=== PATIENT | male | born 1960 | race Caucasian/White ===

== ENCOUNTER → 2020-02-07 09:01 | Outpatient (REF) | payer MEDICAID, SELFPAY | LOC: HO.SL 09:01 | PROVIDERS: PCP Family Medicine; Visit Provider Family Medicine | DX: Z13.89 Encounter for screening for other disorder (principal) ==

== ENCOUNTER 2020-03-27 14:01 | Outpatient (REF) | payer MEDICAID, SELFPAY | END 2020-03-27 14:02 | disposition home or self-care (01) | LOC: HO.LAB 14:01 | PROVIDERS: PCP Family Medicine; Visit Provider Internal Medicine | DX: Z20.828 Contact with and (suspected) exposure to other viral communicable diseases (principal) | CPT/HCPCS: C9803; U0003 ==

== ENCOUNTER → 2020-04-14 08:19 | Outpatient (BNVA) | payer MEDICAID, SELFPAY | PROVIDERS: Referring Provider Family Medicine; Visit Provider Internal Medicine | DX: I35.1 Nonrheumatic aortic (valve) insufficiency (principal); R07.2 Precordial pain | CPT/HCPCS: 93005; 99202 ==

== ENCOUNTER → 2020-05-06 08:23 | Outpatient (REF) | payer MEDICAID, SELFPAY ==
--- NOTE | 2020-05-06 08:27 | CA_ITS ---
Acquisition Time: 2020-05-06 10:05:13 Total Exercise Time: 00:06:51 Test Indications: Chest Pain Medications: OMEPRAZOLE ZOFRAN SILDAFIL Protocol: OLENA Max HR: 151 BPM 92% of Pred: 163 BPM Max BP: 140/078 mmHG Max Work Load: 8.2 METS Exercise stress test using Olena protocol, total of 6 min 51 sec. METS 8.10, TAPHR up to 92 %. Pt tolerated well. Denies any anginal sx. EKG without any arrhythmia, no ischemic changes seen during exercise or in recovery. N ormotensive response to exercise. Test reviewed with Dr. George. Referred By: Willie George Overread By: Leonard Vilchis
--- NOTE | 2020-05-06 08:27 | CA_ITS ---
Transthoracic Echocardiogram Patient (Last, First, Middle): Wily Jones, Gender: Male Date of : 1960 Age: 59 Procedure Date: 05/06/2020 Procedure Type: Transthoracic Echocardiogram Location: OP Height: 170.18 cm Weight: 89.36 kg BSA: 2.01 m2 Heart Rate: bpm BP: 114 / 60 mmHg [employer]: DIANA Patterson MD: Willie George MD Upper Inspector: Clem Hewitt MD Symptoms: I35.1 - Nonrheumatic aortic (valve) insufficiency Study Quality: Good ECG Rhythm: Sinus Conclusions: - 1. Normal LV systolic function with grade 1 diastolic dysfunction 2. Mild and probably okem-rl-csfvelxn eccentric aortic regurgitation 3. Normal RV systolic pressure 4. No gross pericardial effusion Findings Left Ventricle Normal left ventricular cavity size. There is normal left ventricular wall thickness. The left ventricular systolic function is normal. The visually estimated ejection fraction is between 55-60%. Spectral Doppler is indicative of an impaired relaxation filling pattern. E/E prime ratio is <8, consistent with normal filling pressures. Evidence suggests grade I (mild) diastolic dysfunction. There is mild septal asymmetric hypertrophy. Atria The left atrium is likely dilated. There is lipomatous hypertrophy of the interatrial septum. There is no evidence of interatrial shunt. The right atrium is normal in size. Aortic Valve There is mild calcification of the aortic valve. There is no aortic valve stenosis. There is mild to moderate aortic valve regurgitation. Mitral Valve Normal mitral valve structure and function. There is no mitral valve regurgitation. There is no mitral valve stenosis. Pulmonic Valve The pulmonic valve is likely normal. There is trace to mild pulmonic valve regurgitation. Tricuspid Valve Normal tricuspid valve structure. There is mild tricuspid valve regurgitation. The right ventricular systolic pressure is normal. The right ventricular systolic pressure is 29 mmHg. Normal right atrial pressure. There is no evidence of pulmonary hypertension. Great Vessels All visible segments of the aorta are normal in size. The pulmonary artery was not well visualized. Venous The inferior vena cava is normal in size and collapses greater than 50% with inspiration. Pericardium/Pleural There is no evidence of pericardial effusion. Prior Study Comparison No significant change compared to prior study dated: 01/08/2019. Measurements 2D Linear Measurements IVSd: 1.02 0.6-0.9/0.6-1.0 cm LVIDd: 5.13 3.9-5.3/4.2-5.9 cm LVIDd Index: 2.55 2.4-3.2/2.2-3.1 cm/m2 LVIDs: 3.21 2.0-3.6 cm LVPWd: 1.03 0.7-1.1 cm Ao Root: 4.10 2.1-3.5 cm LA Diam: 4.20 2.7-3.8/3.0-4.0 cm LAIDs Index: 2.09 1.5-2.3 cm/m2 LV Mass: 244.55 67-162/88-224 g LV Mass Index: 121.66 43-95/49-115 g/m2 LVOT Diam: 2.00 3.0+(-)1.3 cm 2D Systolic Function EF 4C: 52.60 >55% EF 2C: 56.20 >55% Mitral Valve MV Pk E: 0.51 MV PK A: 0.43 MV Decel Time: 245.00 E/A: 1.20 E'Lateral: 10.30 E'Medial: 7.62 E/E' Med: 6.70 E/E' Lat: 5.00 PHT: 72.00 MVA PHT: 3.06 Decel [place]: 2.08 Aortic Valve AoV Pk Ciaran: 1.29 AoV Mn Ciaran: 0.81 AoV VTI: 0.26 AoV Pk Grad: 7.00 Aov Mn Grad: 3.00 NENA Cont.VTI: 2.73 LVOT LVOT Pk Ciaran: 1.05 LVOT Mn Ciaran: 0.70 LVOT VTI: 0.23 LVOT Pk Grad: 4.00 LVOT Mn Grad: 2.00 LVOT Diam: 2.00 LVOT Area: 3.14 Diastolic Function MV Pk E: 0.51 MV Pk A: 0.43 E/A: 1.20 E'Medial: 7.62 E/E' Med: 6.70 E' Laterial: 10.30 E/E' Lat: 5.00 Tricuspid Valve TR Pk Ciaran: 2.54 TR Pk Grad: 26.00 RA Press: 3.00 RVSP: 29.00 Great Vessels Aorta Ao Root-2D: 4.10 2.0-3.7 cm Ao Asc: 3.60 2.1-3.4 cm Ao Arch: 2.80 Updated in Other Vendor System with Status of Final Clem Hewitt MD electronically signed on 05/07/2020 3:15:37 PM with status of Final
== END ==
LOC: HO.CARD 08:23
PROVIDERS: Visit Provider Internal Medicine
DX: R07.2 Precordial pain (principal); I35.1 Nonrheumatic aortic (valve) insufficiency
CPT/HCPCS: 93017; 93306

== ENCOUNTER 2020-05-10 10:43 | Emergency (ER) | payer MEDICAID, SELFPAY ==
[2020-05-10 11:54] VITALS: BP 110/71; PULSE 66; RESP 18; TEMP 36.9; O2SAT 97; BMI 31.0
--- NOTE | 2020-05-10 12:09 | ED.NAVMDI ---
HPI - Nausea/Vomiting/Diarrhea General Chief complaint: Nausea/Vomiting/Diarrhea Stated complaint: migraine, diarrhea Time Seen by Provider: 05/10/20 11:55 Source: patient Mode of arrival: ambulatory Limitations: language barrier History of Present Illness HPI Narrative: 59 y/o male with history of migraines, erectile dysfunction, aortic regurgitation who presents to the ER with acute onset of watery diarrhea that started at 2am today. He reports some mild abdominal discomfort but denies nausea and vomiting. He states he has been going to the bathroom every 30 minutes since 2am. He denied blood in his stool. No lightheadedness, dizziness, chest pain, SOB or fever. He reports a headache that is typical of his migraines. He took his migraine medications as well as Imodium at 6am but the diarrhea persisted. MD elicited complaint: diarrhea Onset (ago): hour(s) (10) Description of vomiting: watery Description of diarrhea: watery Associated nausea: No Associated abdominal pain: No Location of pain: none Severity: moderate Quality: cramping (mild cramping at times ) Exacerbating factors: bowel movement Relieving factors: none Associated symptoms: headaches and loss of appetite Treatment prior to arrival: immodium Related Data Home Medications Medication Instructions Recorded Confirmed [id number]-ddnkjxjrpmatr-mirejdyv 1 cap PO TID PRN 04/14/20 04/14/20 50 mg-300 mg-40 mg capsule omeprazole 20 mg capsule,delayed 20 mg PO DAILY 04/14/20 04/14/20 release ondansetron HCl 4 mg tablet 4 mg PO Q8H 04/14/20 04/14/20 sildenafil (pulm.hypertension) 20 20 mg PO TID 04/14/20 04/14/20 mg tablet Allergies Allergy/AdvReac Type Severity Reaction Status Date / Time No Known Allergies Allergy Unverified 01/10/20 19:38 Review of Systems Review of Systems: Constitutional: No Fever, No Chills ENT/Mouth: No sore throat, No Rhinorrhea, No Swallowing Difficulty Cardiovascular: No Chest Pain, No SOB, No Orthopnea, No Edema Respiratory: No Cough, No Sputum, No Wheezing, No dyspnea Gastrointestinal: No Nausea, No Vomiting, + Diarrhea, No abdominal Pain Genitourinary: No Dysuria, No Urinary Frequency, No Hematuria Musculoskeletal: No joint pain, No Myalgias Skin: No Skin Lesions, No rash Neuro: + Weakness (mild generalized), No Numbness, No Dizziness, + Headache Psych: No Anxiety/Panic, No Depression Heme/Lymph: No Bruising, No Lymphadenopathy Endocrine: No Polyuria, No Polydipsia Gastrointestinal: Gastrointestinal: Denies nausea PMFSH Past Medical History Medical History (Updated 05/10/20 @ 13:08 by DAYA Ch) Non-rheumatic aortic regurgitation Family History Family History (Updated 04/14/20 @ 08:36 by LILO Hernandez) Father No problems noted. Mother No problems noted. Social History Social History (Updated 04/14/20 @ 08:36 by LILO Hernandez) Smoking Status: Never smoker Use of substances other than those prescribed or required for medical reasons: No Advance Directives: No Advance Directives Information Provided: No Physical Exam Vital Signs: Vital Signs: Last Vital Signs Temp 98.5 F 05/10/20 13:22 Pulse 72 05/10/20 13:22 Resp 16 05/10/20 13:22 BP 122/80 05/10/20 13:22 Pulse Ox 99 05/10/20 13:22 Body Mass Index 31.0 Appearance: Alert. Oriented X3. No acute distress. Eyes: normal inspection ENT: Pharynx normal. Neck: Normal inspection. Neck supple. CVS: Normal heart rate and rhythm. Pulses normal. Respiratory: No respiratory distress. Breath sounds normal. Abdomen: Soft and nontender. +hyperactive bowel sounds Skin: Skin warm and dry. Normal skin color. Normal skin turgor. No rashes. Extremities: No lower extremity edema. Neuro: Oriented X 3. Non-focal, steady gait Course Course Course Narrative: 59 y/o male presenting with 10 hours of watery diarrhea and headache. Suspect viral etiology. No abdominal pain, no bleeding. Will check basic labs, redose Imodium and give trial of Pepto. Will give IVF and test for COVID-19 as well. He appears non-toxic and is hemodynamically stable and afebrile on arrival. Reevaluation(s) Reevaluation #1: 1 episode of diarrhea here. Symptoms overall improving. Lab workup is unremarkable. Lytes are stable. Resp panel negative. Stable for d/c. Patient has been counseled. MDM - Nausea/Vomiting/Diarrhea Differential Diagnosis Differential diagnosis: Likely food poisoning, gastroenteritis and dehydration Lab Data Result diagrams: 05/10/20 12:41 05/10/20 12:41 Labs: Lab Results 05/10/20 05/10/20 05/10/20 Range/Units 12:40 12:40 12:41 WBC 5.6 (4.8-10.8) X10*3/uL RBC 5.15 (4.60-5.80) X10*6/uL Hgb 16.0 (14.0-18.0) g/dl Hct 48.0 (42-52) % MCV 93.2 (80-98) fL MCH 31.1 (27.0-33.0) pg MCHC 33.3 (31.0-36.0) g/dl RDW 13.9 (11.0-16.0) % Plt Count 191 (160-400) X10*3/uL MPV 11.0 (9.4-12.4) fL Immature Gran % (Auto) 0.2 (0.0-0.4) % Neut % (Auto) 72.6 (45-73) % Lymph % (Auto) 16.3 L (20-40) % [place] % (Auto) 9.1 (2-11) % Eos % (Auto) 1.6 (0-4) % Baso % (Auto) 0.2 (0-2) % Lymph # (Auto) 0.9 L (1.2-4.9) X10*3/uL [place] # (Auto) 0.5 (0.1-1.2) X10*3/uL Eos # (Auto) 0.1 (0.0-0.4) X10*3/uL Baso # (Auto) 0.0 (0.0-0.2) X10*3/uL Abs Immat Gran (auto) 0.01 (0.00-0.03) X10*3/uL Absolute Neuts (auto) 4.1 (2.0-8.3) X10*3/uL Absolute Nucleated RBC 0.000 (0.0-0.012) X10*3/uL Nucleated RBC % (auto) 0.0 (0.0-0.2) /100WBC Sodium (135-145) mmol/L Potassium (3.3-5.1) mmol/l Chloride (96-108) mmol/L Carbon Dioxide (22-29) mmol/L Anion Gap (12-20) BUN (9-16) mg/dL Creatinine (0.5-1.4) mg/dL Estim Creat Clear Calc Estimated GFR Random Glucose (60-115) mg/dL Calcium (8.4-10.2) mg/dL Magnesium (1.6-2.6) mg/dL Total Bilirubin (0.0-1.0) mg/dL Direct Bilirubin (0.0-0.5) mg/dL AST (5-37) U/L ALT (0-40) U/L Alkaline Phosphatase (39-117) U/L Total Protein (6.5-8.0) g/dL Albumin (3.5-5.0) g/dL Urine Color YELLOW Urine Appearance CLEAR Urine pH 5.5 (5.0-8.0) Ur Specific Wilsey >= 1.030 H (1.005-1.025) Urine Protein NEG (NEG-TRACE) MG/DL Urine Glucose (UA) NEG (NEG) MG/DL Urine Ketones NEG (NEG) MG/DL Urine Blood NEG (NEG) Urine Nitrite NEG (NEG) Ur Leukocyte Esterase NEG (NEG) Coronavirus (PCR) NEGATIVE (Negative) Influenza Type A (PCR) NEGATIVE (Negative) Influenza Type B (PCR) NEGATIVE (Negative) RSV RNA Qual (PCR) NEGATIVE (Negative) 05/10/20 Range/Units 12:41 WBC (4.8-10.8) X10*3/uL RBC (4.60-5.80) X10*6/uL Hgb (14.0-18.0) g/dl Hct (42-52) % MCV (80-98) fL MCH (27.0-33.0) pg MCHC (31.0-36.0) g/dl RDW (11.0-16.0) % Plt Count (160-400) X10*3/uL MPV (9.4-12.4) fL Immature Gran % (Auto) (0.0-0.4) % Neut % (Auto) (45-73) % Lymph % (Auto) (20-40) % [place] % (Auto) (2-11) % Eos % (Auto) (0-4) % Baso % (Auto) (0-2) % Lymph # (Auto) (1.2-4.9) X10*3/uL [place] # (Auto) (0.1-1.2) X10*3/uL Eos # (Auto) (0.0-0.4) X10*3/uL Baso # (Auto) (0.0-0.2) X10*3/uL Abs Immat Gran (auto) (0.00-0.03) X10*3/uL Absolute Neuts (auto) (2.0-8.3) X10*3/uL Absolute Nucleated RBC (0.0-0.012) X10*3/uL Nucleated RBC % (auto) (0.0-0.2) /100WBC Sodium 142 (135-145) mmol/L Potassium 4.0 (3.3-5.1) mmol/l Chloride 110 H (96-108) mmol/L Carbon Dioxide 23 (22-29) mmol/L Anion Gap 13 (12-20) BUN 18 H (9-16) mg/dL Creatinine 1.37 (0.5-1.4) mg/dL Estim Creat Clear Calc 63.6 Estimated GFR 54 Random Glucose 103 (60-115) mg/dL Calcium 8.8 (8.4-10.2) mg/dL Magnesium 2.0 (1.6-2.6) mg/dL Total Bilirubin 0.7 (0.0-1.0) mg/dL Direct Bilirubin 0.3 (0.0-0.5) mg/dL AST 23 (5-37) U/L ALT 40 (0-40) U/L Alkaline Phosphatase 103 (39-117) U/L Total Protein 7.4 (6.5-8.0) g/dL Albumin 4.6 (3.5-5.0) g/dL Urine Color Urine Appearance Urine pH (5.0-8.0) Ur Specific Wilsey (1.005-1.025) Urine Protein (NEG-TRACE) MG/DL Urine Glucose (UA) (NEG) MG/DL Urine Ketones (NEG) MG/DL Urine Blood (NEG) Urine Nitrite (NEG) Ur Leukocyte Esterase (NEG) Coronavirus (PCR) (Negative) Influenza Type A (PCR) (Negative) Influenza Type B (PCR) (Negative) RSV RNA Qual (PCR) (Negative) Critical Care Time Critical Care Time Critical Care Time: No Discharge Plan Discharge Clinical Impression: Gastroenteritis Patient Disposition: Home, Self-Care Instructions: Acute Diarrhea (ED) Additional Instructions: Your lab work today was unremarkable. You were negative for COVID-19, influenza and RSV. Continue to take Imodium as needed - no not exceed 16 mg in a 24 hour period. Take Pepto Bismol as needed. Stay hydrated, drink plenty of fluids. Stick to a bland diet while you aren't feeling we.. Prescriptions: No Action sildenafil (pulm.hypertension) 20 mg tablet 20 mg PO TID RF: 0 omeprazole 20 mg capsule,delayed release(DR/EC) 20 mg PO DAILY RF: 0 undpyfyfbe-olfhblzfuvkdk-ysdc [Fioricet] 50-300-40 mg capsule 1 cap PO TID PRNRF: 0 ondansetron HCl [Zofran] 4 mg tablet 4 mg PO Q8H RF: 0
[2020-05-10 12:46] LABS: MANUAL DIFF FLAG NO
[2020-05-10 12:47] LABS: Basophils Percent Auto 0.2 % (0-2); Eosinophils Absolute Auto 0.1 X10*3/uL (0.0-0.4); Eosinophils Percent Auto 1.6 % (0-4); Imm Gran Abs Auto 0.01 X10*3/uL (0.00-0.03); Imm Gran Pct Auto 0.2 % (0.0-0.4); Lymphocytes Absolute Auto 0.9 X10*3/uL (1.2-4.9); Lymphocytes Percent Auto 16.3 % (20-40); Mean Corpuscular HGB Conc 33.3 g/dl (31.0-36.0); Mean Corpuscular Hemoglobin 31.1 pg (27.0-33.0); Mean Corpuscular Volume 93.2 fL (80-98); Monocytes Absolute Auto 0.5 X10*3/uL (0.1-1.2); Monocytes Percent Auto 9.1 % (2-11); Neutrophils Absolute Auto 4.1 X10*3/uL (2.0-8.3); Neutrophils Percent Auto 72.6 % (45-73); Platelet Count 191 X10*3/uL (160-400); Red Blood Count 5.15 X10*6/uL (4.60-5.80); Red Cell Distribution Width 13.9 % (11.0-16.0); White Blood Count 5.6 X10*3/uL (4.8-10.8)
[2020-05-10 12:53] LABS: Glucose Urine UA NEG (NEG); Leukocyte Esterase Urine NEG (NEG); Nitrite Urine NEG (NEG); PH 5.5 (5.0-8.0); Specific Gravity - Urine >= 1.030 (1.005-1.025); Urine Blood NEG (NEG); Urine Ketones NEG (NEG); Urine Protein NEG (NEG-TRACE)
[2020-05-10 12:56] LABS: Appearance Urine CLEAR; Color Urine YELLOW
[2020-05-10 13:16] LABS: Alanine Aminotransferase 40 U/L (0-40); Albumin Level 4.6 g/dL (3.5-5.0); Alkaline Phosphatase 103 U/L (39-117); Anion Gap 13 (12-20); Aspartate Amino Transferase 23 U/L (5-37); Bilirubin Direct 0.3 mg/dL (0.0-0.5); Bilirubin Total 0.7 mg/dL (0.0-1.0); Blood Urea Nitrogen 18 mg/dL (9-16); Calcium 8.8 mg/dL (8.4-10.2); Carbon Dioxide 23 mmol/L (22-29); Chloride 110 mmol/L (96-108); Creatinine Clr Calc Pharmacy 63.6; Estimated Glomerular Filt Rate 54; Glucose Random 103 mg/dL (60-115); Sodium 142 mmol/L (135-145); Total Protein 7.4 g/dL (6.5-8.0)
[2020-05-10 13:22] VITALS: BP 122/80; PULSE 72; RESP 16; TEMP 36.9; O2SAT 99
[2020-05-10 13:47] LABS: Influenza A PCR NEGATIVE (Negative); Influenza B PCR NEGATIVE (Negative); Resp Syncy Virus RNA Qual PCR NEGATIVE (Negative); SARS COV2 PCR INHOUSE NEGATIVE (Negative)
[2020-05-10] MEDS: Bismuth Subsalicylate 262 MG TABLET 524 MG PO (14:02)
[2020-05-10] MEDS: Loperamide HCl 2 MG CAPSULE 4 MG PO (14:02)
[2020-05-10] MEDS: 0.9 % Sodium Chloride 1,000 ML 999 ML IVCONT (14:03)
== END 2020-05-10 14:29 | disposition home or self-care (01) ==
PROVIDERS: Physician Assistant; Emergency Provider Emergency Medicine Emergency Medical Services; PCP Family Medicine
DX: K52.9 Noninfective gastroenteritis and colitis, unspecified (principal); G43.909 Migraine, unspecified, not intractable, without status migrainosus; Z20.822 Contact with and (suspected) exposure to COVID-19; Z79.899 Other long term (current) drug therapy
CPT/HCPCS: 0241U; 36415; 80048; 80076; 81003; 83735; 85025; 96360; 99284

== ENCOUNTER → 2020-05-19 08:06 | Outpatient (BNVA) | payer MEDICAID, SELFPAY | PROVIDERS: PCP Family Medicine; Visit Provider Internal Medicine | DX: I35.1 Nonrheumatic aortic (valve) insufficiency (principal); R07.2 Precordial pain | CPT/HCPCS: 99212 ==

== ENCOUNTER → 2021-05-15 09:30 | Outpatient (REF) | payer MEDICAID, SELFPAY ==
--- NOTE | 2021-05-15 09:33 | CA_ITS ---
Transthoracic Echocardiogram Patient (Last, First, Middle): Wily Jones, Gender: Male Date of : 1960 Age: 60 Procedure Date: 05/15/2021 Procedure Type: Transthoracic Echocardiogram Location: OP Height: 167.64 cm Weight: 90.27 kg BSA: 2.00 m2 Heart Rate: bpm BP: 128 / 70 mmHg Director Auto: Referring MD: Willie George MD Symptoms: I35.1 - Nonrheumatic aortic (valve) insufficiency Study Quality: Fair ECG Rhythm: Sinus Conclusions: - Normal left ventricular size and systolic function. - Normal right ventricular cavity size and systolic function. - There is mild to moderate aortic valve regurgitation. Findings Left Ventricle Normal left ventricular size and systolic function. There is mildly increased left ventricular wall thickness. The visually estimated ejection fraction is between 60-65%. Diastolic function is normal for age. Right Ventricle Normal right ventricular cavity size and systolic function. Atria The left atrium is mildly dilated. Aortic Valve There is a normal trileaflet aortic valve. There is no evidence of thickening of the aortic valve. There is no aortic valve stenosis. There is mild to moderate aortic valve regurgitation. Eccentric jet of the AI, anteriorly directed. Mitral Valve Normal mitral valve structure and function. There is trace mitral valve regurgitation. There is no mitral valve stenosis. Pulmonic Valve The pulmonic valve is likely normal. Tricuspid Valve Normal tricuspid valve structure and function. There is trace tricuspid valve regurgitation. Tricuspid regurgitation envelope is inadequate for calculation of right ventricular systolic pressure. Normal right atrial pressure. Great Vessels There is mild dilatation of the ascending aorta. Venous The inferior vena cava is normal in size and collapses greater than 50% with inspiration. Pericardium/Pleural There is no evidence of pericardial effusion. Prior Study Comparison No significant change compared to prior study. Measurements 2D Linear Measurements IVSd: 1.12 0.6-0.9/0.6-1.0 cm LVIDd: 4.92 3.9-5.3/4.2-5.9 cm LVIDd Index: 2.46 2.4-3.2/2.2-3.1 cm/m2 LVIDs: 2.82 2.0-3.6 cm LVPWd: 1.14 0.7-1.1 cm Ao Root: 3.80 2.1-3.5 cm LA Diam: 4.10 2.7-3.8/3.0-4.0 cm LAIDs Index: 2.05 1.5-2.3 cm/m2 LV Mass: 261.09 67-162/88-224 g LV Mass Index: 130.55 43-95/49-115 g/m2 LVOT Diam: 2.30 3.0+(-)1.3 cm 2D Systolic Function EF 4C: 60.80 >55% EF 2C: 53.20 >55% EF BiP: 59.20 >55% Mitral Valve MV Pk E: 0.64 MV PK A: 0.50 MV Decel Time: 213.00 E/A: 1.30 E'Lateral: 11.00 E'Medial: 7.51 E/E' Med: 8.50 E/E' Lat: 5.80 PHT: 63.00 MVA PHT: 3.49 Decel Winn: 2.99 Aortic Valve AoV Pk Ciaran: 1.43 AoV Mn Ciaran: 0.95 AoV VTI: 0.29 AoV Pk Grad: 8.00 Aov Mn Grad: 4.00 NENA Cont.VTI: 3.14 LVOT LVOT Pk Ciaran: 1.06 LVOT Mn Ciaran: 0.63 LVOT VTI: 0.22 LVOT Pk Grad: 4.00 LVOT Mn Grad: 2.00 LVOT Diam: 2.30 LVOT Area: 4.15 Diastolic Function MV Pk E: 0.64 MV Pk A: 0.50 E/A: 1.30 E'Medial: 7.51 E/E' Med: 8.50 E' Laterial: 11.00 E/E' Lat: 5.80 Right Ventricle TAPSE (mm): 28.00 TVS' Ciaran: 14.00 Tricuspid Valve TR Pk Ciaran: 1.93 TR Pk Grad: 15.00 Great Vessels Aorta Ao Root-2D: 3.80 2.0-3.7 cm Ao Asc: 3.50 2.1-3.4 cm Pulmonary Valve PV Pk Ciaran: 1.00 Peak PV Grad: 4.00 Updated in Other Vendor System with Status of Final Abdulaziz Finch MD electronically signed on 05/18/2021 12:26:24 PM with status of Final
== END ==
LOC: HO.CARD 09:30
PROVIDERS: Visit Provider Internal Medicine
DX: I35.1 Nonrheumatic aortic (valve) insufficiency (principal)
CPT/HCPCS: 93306

== ENCOUNTER → 2021-07-16 08:28 | Outpatient (BNVA) | payer MEDICAID, SELFPAY | PROVIDERS: PCP Nurse Practitioner; Referring Provider Nurse Practitioner; Visit Provider Internal Medicine | DX: I35.1 Nonrheumatic aortic (valve) insufficiency (principal); R07.2 Precordial pain | CPT/HCPCS: 93005; 99212 ==

== ENCOUNTER → 2022-06-30 07:56 | Outpatient (REF) | payer MEDICAID, SELFPAY ==
--- NOTE | 2022-06-30 07:58 | CA_ITS ---
Transthoracic Echocardiogram Patient (Last, First, Middle): Wily Jones, Gender: Male Date of : 1960 Age: 61 Procedure Date: 06/30/2022 Procedure Type: Transthoracic Echocardiogram Location: OP Height: 167.64 cm Weight: 81.65 kg BSA: 1.91 m2 Heart Rate: 53 bpm BP: 120 / 70 mmHg Vertical Borer: MARILU Referring MD: Willie George MD Symptoms: I35.1 - Nonrheumatic aortic (valve) insufficiency Study Quality: Fair ECG Rhythm: Sinus Conclusions: - The left ventricular systolic function is normal. The calculated ejection fraction is 55% by biplane method. - There is moderate septal and moderate basal asymmetric hypertrophy. - There is mild to moderate aortic valve regurgitation. Findings Left Ventricle Normal left ventricular cavity size. The left ventricular systolic function is normal. The calculated ejection fraction is 55% by biplane method. There is no evidence of regional wall motion abnormalities. Diastolic function is normal for age. There is moderate septal and moderate basal asymmetric hypertrophy. Right Ventricle Normal right ventricular cavity size and systolic function. Atria Both atria are normal in size. Aortic Valve There is a normal trileaflet aortic valve. There is mild calcification of the aortic valve. There is no aortic valve stenosis. There is mild to moderate aortic valve regurgitation. Mitral Valve The mitral valve appears normal. There is no mitral valve regurgitation. There is no mitral valve stenosis. Pulmonic Valve There is trace pulmonic valve regurgitation. Tricuspid Valve Normal tricuspid valve structure. There is mild tricuspid valve regurgitation. There is no evidence of pulmonary hypertension. Great Vessels The asc aorta is normal in size. There is mild dilatation of the sinuses of Valsalva measuring 4.00 cm. Venous The inferior vena cava is normal in size and collapses greater than 50% with inspiration. Pericardium/Pleural There is no evidence of pericardial effusion. Prior Study Comparison No significant change compared to prior study dated: 05/15/2021. Measurements 2D Linear Measurements IVSd: 1.33 0.6-0.9/0.6-1.0 cm LVIDd: 4.83 3.9-5.3/4.2-5.9 cm LVIDd Index: 2.53 2.4-3.2/2.2-3.1 cm/m2 LVIDs: 2.24 2.0-3.6 cm LVPWd: 1.05 0.7-1.1 cm LA Diam: 3.80 2.7-3.8/3.0-4.0 cm LAIDs Index: 1.99 1.5-2.3 cm/m2 LV Mass: 272.61 67-162/88-224 g LV Mass Index: 142.73 43-95/49-115 g/m2 LVOT Diam: 2.10 3.0+(-)1.3 cm 2D Systolic Function EF 4C: 56.50 >55% EF 2C: 52.10 >55% EF BiP: 55.30 >55% Mitral Valve MV Pk E: 0.55 MV PK A: 0.42 MV Decel Time: 183.00 E/A: 1.30 E'Lateral: 11.00 E'Medial: 7.94 E/E' Med: 7.00 E/E' Lat: 5.00 PHT: 54.00 MVA PHT: 4.07 Decel [place]: 3.03 Aortic Valve AoV Pk Ciaran: 1.18 AoV Mn Ciaran: 0.85 AoV VTI: 0.28 AoV Pk Grad: 6.00 Aov Mn Grad: 3.00 NENA Cont.VTI: 3.19 AI Alias Ciaran: 0.39 LVOT LVOT Pk Ciaran: 1.04 LVOT Mn Ciaran: 0.70 LVOT VTI: 0.26 LVOT Pk Grad: 4.00 LVOT Mn Grad: 2.00 LVOT Diam: 2.10 LVOT Area: 3.46 Diastolic Function MV Pk E: 0.55 MV Pk A: 0.42 E/A: 1.30 E'Medial: 7.94 E/E' Med: 7.00 E' Laterial: 11.00 E/E' Lat: 5.00 Right Ventricle TAPSE (mm): 25.30 TVS' Ciaran: 15.40 Tricuspid Valve TR Pk Ciaran: 2.15 TR Pk Grad: 18.00 RA Press: 3.00 RVSP: 21.00 Great Vessels Aorta Sinus of Valsalva: 4.00 2.0-3.5 cm Ao Asc: 3.60 2.1-3.4 cm Pulmonary Valve PV Pk Ciaran: 0.99 Peak PV Grad: 4.00 Updated in Other Vendor System with Status of Final Willie George MD electronically signed on 07/02/2022 12:14:57 PM with status of Final
== END ==
LOC: HO.CARD 07:56
PROVIDERS: Visit Provider Internal Medicine
DX: I35.1 Nonrheumatic aortic (valve) insufficiency (principal)
CPT/HCPCS: 93306

== ENCOUNTER → 2022-08-19 08:47 | Outpatient (BNVA) | payer MEDICAID, SELFPAY | PROVIDERS: Referring Provider Nurse Practitioner; Visit Provider Internal Medicine | DX: I35.1 Nonrheumatic aortic (valve) insufficiency (principal); R07.2 Precordial pain | CPT/HCPCS: 93005; 99212 ==

== ENCOUNTER 2022-11-16 10:26 | Outpatient (REF) | payer MEDICAID, SELFPAY ==
[2022-11-16 12:10] LABS: Estimated Average Glucose 103 mg/dL; Hemoglobin A1c % 5.2 %
[2022-11-16 12:46] LABS: Microalbum/Creatinine Ratio Ur 2.7 ug/mg cr
[2022-11-16 13:20] LABS: Anion Gap 10 (12-20); Blood Urea Nitrogen 18 mg/dL (9-16); Calcium 9.2 mg/dL (8.4-10.2); Carbon Dioxide 27 mmol/L (22-29); Chloride 108 mmol/L (96-108); Cholesterol 148 mg/dL; Estimated Glomerular Filt Rate 53; Glucose Random 99 mg/dL (60-115); HDL Cholesterol 32 mg/dL; LDL Cholesterol Calculated 92 mg/dl; Potassium 4.1 mmol/L (3.3-5.1); Sodium 141 mmol/L (135-145); Triglycerides 124 mg/dL
== END 2022-11-16 10:27 | disposition home or self-care (01) ==
LOC: HO.HHCL 10:26
PROVIDERS: Visit Provider Nurse Practitioner Primary Care
DX: R73.03 Prediabetes (principal)
CPT/HCPCS: 36415; 80048; 80061; 82043; 83036

== ENCOUNTER 2022-11-29 13:45 | Outpatient (AMB) | payer MEDICAID, SELFPAY ==
[2022-11-29 13:55] VITALS: BP 130/71; PULSE 63; BMI 30.1
--- NOTE | 2022-11-29 13:55 | MHC.OFFVIS ---
Intake Vital Signs 11/29/22 13:55 Height 5 ft 7 in Weight 192 lb BMI 30.1 BP 130/71 Blood Pressure Location Rt brachial Position Sitting Pulse 63 Intake Visit Reasons: right inguinal hernia Intake Note: This patient presents for an assessment for right inguinal hernia. Patient c/o; Onset 2 months, reports right inguinal pain, bulge, reports urinary problems. Sales Counselor Required: Yes Sales Counselor Language: Abrasive Band Winder Name: Syed Information Interpreted: non-clinical & clinical Accompanied by: Self / Same As Patient Allergies No Known Allergies Allergy (Verified 11/29/22 14:03) Medication List - Last Reconciled 11/29/22 by Roosevelt Olson MD etumtgwvof-zjehmijnvbwhx-izeo 50-300-40 mg (Fioricet) 1 cap PO TID PRN cetirizine 10 mg PO QAM melatonin 10 mg PO BEDTIME ondansetron HCl (Zofran) 4 mg PO Q8H sildenafil (pulm.hypertension) 20 mg PO TID HPI right inguinal hernia HPI Details 62-year-old male referred for right inguinal hernia. He notices this small mass on his right groin with exertion. He says that he has started noticing this about 3 months ago. He also describes discomfort with lifting. 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 He denies any GI complaints. He also says that he was told he has a benign heart murmur. [facility] Medical History Inguinal hernia of right side without obstruction or gangrene Non-rheumatic aortic regurgitation Family History Father No problems noted. Mother No problems noted. Social History Patient Tobacco Use Status: Never used Tobacco Review of Systems Const Denies chills and Denies fever(s) Card Denies chest pain, Denies dyspnea and Denies dyspnea on exertion Resp Denies cough, Denies dyspnea and Denies dyspnea on exertion GI Denies hematochezia and Denies change in bowel habits Denies hematuria and Denies difficulty urinating Musc Denies back pain and Denies limited range of motion Neuro Denies focal weakness and Denies convulsions Psych Denies depression and Denies mood swings Physical Exam Vital Signs: Last Vital Signs Pulse 63 11/29/22 13:55 BP 130/71 11/29/22 13:55 BMI result Body Mass Index 30.1 Const General: comfortable and no acute distress Orientation/consciousness: patient oriented x3 Neck Neck: Yes no lymphadenopathy Resp Auscultation: clear to auscultation bilaterally Cardio Rhythm: regular rhythm GI Other: Right inguinal hernia, obvious with Valsalva, reducible Palpation (GI): Soft to palpation, nontender and no guarding Neuro General: patient oriented x3 Assessment & Plan Assessment & Plan (1) Inguinal hernia of right side without obstruction or gangrene: Code(s): K40.90 - Unilateral inguinal hernia, without obstruction or gangrene, not specified as recurrent Plan: I explained to him the technique of repair with mesh placement. I reviewed with him the risks including but not limited to bleeding, infections, injury to other organs including bowel, vas deferens and the scrotum, recurrence of the hernia, postop pain, hematoma, as well as the benefits and alternatives. He wants to proceed because of discomfort. I also explained to him what to expect postoperatively. Coding Level of Care Code New Pt Level 3 (13422) Diagnoses Inguinal hernia of right side without obstruction or gangrene K40.90
== END 2022-11-29 14:18 | disposition home or self-care (01) ==
PROVIDERS: Visit Provider Surgery
DX: K40.90 Unilateral inguinal hernia, without obstruction or gangrene, not specified as recurrent (principal)
CPT/HCPCS: 99203

== ENCOUNTER → 2022-11-29 13:45 | Outpatient (BNVA) | payer MEDICAID, SELFPAY | PROVIDERS: Visit Provider Surgery | DX: K40.90 Unilateral inguinal hernia, without obstruction or gangrene, not specified as recurrent (principal) | CPT/HCPCS: 99202 ==

== ENCOUNTER 2023-01-25 06:06 | Day surgery (SDC) | payer MEDICAID, SELFPAY ==
[2023-01-21 09:36] VITALS: BMI 30.1
--- NOTE | 2023-01-24 13:57 | HO.ANESPROP2 ---
Documented by User: Sole Recinos NP 01/24/23 14:02 HPI - Anesthesia Eval Consult details Narrative: 62yo M for Right Hernia Repair Inguinal w/mesh PMFSH Active Problems Active Problems: All Active Problems (Updated 11/29/22 @ 14:18 by Roosevelt Olson MD) Inguinal hernia of right side without obstruction or gangrene (Acute) Precordial chest pain (Acute) Non-rheumatic aortic regurgitation (Acute) Past Medical History Medical History Insomnia Migraines Inguinal hernia of right side without obstruction or gangrene Non-rheumatic aortic regurgitation Family History Family History Father No problems noted. Mother No problems noted. Surgical History Surgical History History of ear surgery H/O colonoscopy History of carpal tunnel surgery of right wrist Social History Social History Patient Tobacco Use Status: Never used Tobacco Use of substances other than those prescribed or required for medical reasons: No Are you DNR?: No Advance Directives: No Advance Directives Information Provided: Yes Meds Allergies Allergy/AdvReac Type Severity Reaction Status Date / Time No Known Allergies Allergy Verified 01/25/23 06:17 Home Medications Medication Instructions Recorded Confirmed Last Taken Type whsezxjtuw-zooioqzqfdbwo-dftgplnp 1 cap PO TID PRN Migraine Headache 04/14/20 01/25/23 Unknown History 50 mg-300 mg-40 mg capsule (Fioricet) melatonin 5 mg tablet 10 mg PO BEDTIME 08/19/22 01/25/23 Unknown History cetirizine 10 mg tablet 10 mg PO QAM 11/29/22 01/25/23 Unknown History Exam Exam Date and Time: January 24, 2023 1357 Height,Weight and Vital Signs: Height 5 ft 7 in Weight 87.09 kg Pertinent Lab Results Pertinent Lab Results: Laboratory Tests 05/10/20 11/16/22 12:41 10:29 WBC 5.6 Hgb 16.0 Hct 48.0 Plt Count 191 Sodium 141 Potassium 4.1 Chloride 108 Carbon Dioxide 27 BUN 18 H Creatinine 1.38 Narrative Narrative: EKG 07/2022 sinus bradycardia, 55/Min; no significant ST-T changes and otherwise unremarkable. Normal IA and corrected QT ECHO 06/2022 Conclusions: - The left ventricular systolic function is normal. The calculated ejection fraction is 55% by biplane method. - There is moderate septal and moderate basal asymmetric hypertrophy. - There is mild to moderate aortic valve regurgitation. (No specific management per 07/2022 cardiology note) Assessment and Plan Assessment Anesthesia Assessment: Chart Reviewed Documented by User: Sheba Nichols MD 01/25/23 08:04 PMFSH Past Medical History Medical History Insomnia Migraines Inguinal hernia of right side without obstruction or gangrene Non-rheumatic aortic regurgitation Family History Family History Father No problems noted. Mother No problems noted. Family history of problems with anesthesia: No Surgical History Surgical History History of ear surgery H/O colonoscopy History of carpal tunnel surgery of right wrist History of Problems with Anesthesia: No Social History Social History Patient Tobacco Use Status: Never used Tobacco Use of substances other than those prescribed or required for medical reasons: No Are you DNR?: No Advance Directives: No Advance Directives Information Provided: Yes Meds Allergies Allergy/AdvReac Type Severity Reaction Status Date / Time No Known Allergies Allergy Verified 01/25/23 06:17 Home Medications Medication Instructions Recorded Confirmed Last Taken Type jehyfezwec-xzmyjyuogslbz-mzbmhftz 1 cap PO TID PRN Migraine Headache 04/14/20 01/25/23 Unknown History 50 mg-300 mg-40 mg capsule (Fioricet) melatonin 5 mg tablet 10 mg PO BEDTIME 08/19/22 01/25/23 Unknown History cetirizine 10 mg tablet 10 mg PO QAM 11/29/22 01/25/23 Unknown History Exam Airway Mallampati Class: III TM Dist: >3cm Neck ROM: Full Heart: rrr Lungs: cta Assessment and Plan Assessment Anesthesia Assessment: Anesthesia Plan Discussed Final Anesthetic Review Family History of Problems with Anesthesia: No History of Problems with Anesthesia: No NPO: Yes ASA Class: II Final Preanesthetic Review: No Changes in Pt Med Stat, Meds/Allgs Chart Reviewed, Consent Obtained/Reviewed and Anes Risks/Benef Reviewed Patient Risk: Low Procedure Risk: Low Anesthetic Plan Anesthetic Plan: GA Disposition: Standard PACU
[2023-01-25] VITALS (18 sets, daily range): BP systolic 110–166; BP diastolic 56–97; PULSE 48–64; RESP 14–20; TEMP 36–36.4; O2SAT 94–100
[2023-01-25] MEDS: Lactated Ringers 1,000 ML 100 ML IVCONT (06:42)
[2023-01-25] MEDS: fentaNYL citrate/PF 100 MCG/2 ML VIAL 25 MCG IVPUSH ×4 (08:13→09:18)
--- NOTE | 2023-01-25 08:34 | P.OP_ITS ---
Operative Note Operative Note Date of Service: 01/25/23 Narrative: Preop diagnosis: Left inguinal hernia Postop diagnosis: Left inguinal hernia, direct Procedure: Repair left inguinal hernia with mesh Surgeon: Roosevelt Olson MD pharmacist assistant: DAYA Zimmer The patient is a 62-year-old male with note of a reducible mass on the left groin consistent with the left inguinal hernia. He understood the technique of repair with mesh. He was aware of the risks, benefits, and alternatives. He was brought to the operating room. He was placed supine under general anesthesia early with LMA and then converted to an endotracheal tube. The left groin had been prepped and draped in the usual sterile fashion. A surgical time-out was done. The patient received cefazolin 2 g IV preoperatively I infiltrated my planned line of incision with lidocaine 1%. I made a short incision using blade 15 along an imaginary line from the anterior superior iliac spine to the pubic ramus. this was carried down with electrocautery through the full-thickness of the skin and subcutaneous fat until I was able to expose the external oblique aponeurosis. I was able to visualize the external ring. I bluntly dissected this to define this. I made an incision on the aponeurosis overlying the canal using blade 15. This was extended inferiorly medially to connect with the external ring using an open tip pair of scissors. The inguinal canal was therefore entered. I applied graspers on the edges of the divided aponeurosis. I bluntly dissected the underside with the finger to create a pocket for the mesh. I proceeded to pass a [place] drain around the spermatic cord to use this for retraction. I then identified the vas deferens and the accompanying vessels and these were protected during the dissection. I examined the entire cord. There was no the sac along the cord but there was note of fat containing hernia on the floor of the canal consistent with a direct hernia. I bluntly dissected this off of the rest of the cord contents. I defined this hernia defect. I reinforced the defect with a medium-sized plug. The plug was secured to the shelving edge of the inguinal ligament laterally, the internal oblique superiorly as well as medially. I reinforced the rest of the foot of the canal with a keyhole mesh. The tails of the mesh were passed around the cord at the level of the internal ring and were secured together with the Prolene 2-0 stitch. I flattened the mesh. I secured this to the pubic ramus inferomedially, the inguinal ligament laterally, the internal oblique superiorly as well as medially. I irrigated and observed from a stasis. Once hemostasis was confirmed, I closed the external oblique aponeurosis with a running 2-0 stitch to re-create the external ring. I then reapposed the subcutaneous layer with S of 3-0 interrupted sutures. Skin closure was achieved with polyps a 4-0 subcuticular running stitch. The area was infiltrated with Marcaine 0.5% for postop analgesia. Dressings were applied and the procedure was completed The patient tolerated the rocedure well. There were no immediate complications. Initial and final counts of sponges and instruments were correct. Estimated blood loss was about 25 cc The patient was extubated without difficulty and transferred to the recovery room with stable vital signs.
--- NOTE | 2023-01-25 08:47 | MHC.SHP ---
Pre-Procedural Eval Section A Date of Service: 01/25/23 The patient is an INPATIENT: No Changes since office visit: No Cold of Flu in the past 2 weeks, No New Medical Problems, No Changes in Medication and No Patient answered all questions The History & Physical has been completed within 30 days and I have reviewed it.: Yes Section B Chief Complaint: Unilateral inguinal hernia, without obstruction or Details of Present Illness: has left inguinal hernia, reducible Relevant Family History (Specify if Yes): No Relevant Social History: None Present Medications: see Short Stay Collaborative assessment Medical History: Significant History ( rheumatic heart disease) History of Previous Operations: No relevant previous surgery Allergies: Allergies Allergy/AdvReac Type Severity Reaction Status Date / Time No Known Allergies Allergy Verified 01/25/23 06:17 Review of Systems Sugical H&P ROS: Negative: Constitution, Cardiovascular, Respiratory, Neurological, Psychiatric, Hem-Onc, Allergic/Immunologic, Gastrointestinal, Genitourinary, Musculoskeletal, Integumentary, Endocrine and Eyes/Ears/Nose/Throat Exam Surgical H&P Exam: Significant Findings: Abdomen ( reducible left inguinal hernia) Plan Diagnosis/Plan: Unchanged I have reviewed the history and physical and performed a pertinent physical examination on my patient. No changes have occurred unless specified. Time Spent With Patient Time: Total time managing care of this patient today ____ minutes.
[2023-01-25] MEDS: oxyCODONE HCl Immed Release 5 MG TABLET PO ×2 (09:06→09:11)
[2023-01-25] MEDS: Acetaminophen 1,000 MG/100 ML PIGGYBACK 400 MG IV (09:18)
[2023-01-25] MEDS: fentaNYL citrate/PF 100 MCG/2 ML VIAL 50 MCG IVPUSH (09:33)
[2023-01-25] MEDS: ondansetron HCL 4 MG/2 ML VIAL IVPUSH (09:51)
[2023-01-25] MEDS: Ondansetron ODT 4 MG TAB.RAPDIS TRANSLINGU (10:44)
== END 2023-01-25 11:09 | disposition home or self-care (01) ==
PROVIDERS: PCP Nurse Practitioner Primary Care; Visit Provider Surgery
PROC: (CPT 49505; principal; 2023-01-25 07:30)
DX: K40.90 Unilateral inguinal hernia, without obstruction or gangrene, not specified as recurrent (principal); R10.31 Right lower quadrant pain; I35.1 Nonrheumatic aortic (valve) insufficiency; R73.03 Prediabetes; G43.909 Migraine, unspecified, not intractable, without status migrainosus; Z79.899 Other long term (current) drug therapy
CPT/HCPCS: 49505; C1781; J0131; J0690; J1100; J1170; J2405; J3010

== ENCOUNTER → 2023-01-25 06:06 | Outpatient (BNV) | payer MEDICAID, SELFPAY | PROVIDERS: PCP Nurse Practitioner Primary Care; Visit Provider Surgery | DX: K40.90 Unilateral inguinal hernia, without obstruction or gangrene, not specified as recurrent (principal) | CPT/HCPCS: 49505 ==

== ENCOUNTER 2023-02-07 14:07 | Outpatient (AMB) | payer MEDICAID, SELFPAY ==
--- NOTE | 2023-02-07 14:27 | MHC.OFFVIS ---
Intake Vital Signs 02/07/23 14:34 Weight 194 lb BP 142/73 H Blood Pressure Location Rt brachial Position Sitting Pulse 61 Intake Visit Reasons: S/P RIH w/mesh Intake Note: This patient presents for a post-op assessment status post right inguinal hernia repair with mesh. Patient c/o; reports no changes or complaints at this time pertaining to surgery. Woodenware Assembler Required: Yes Woodenware Assembler Language: Circuit Design Engineer Name: Syed Information Interpreted: non-clinical & clinical Accompanied by: Other Relationship Allergies No Known Allergies Allergy (Verified 02/07/23 14:34) HPI S/P RIH w/mesh HPI Details He underwent repair of a right inguinal hernia with mesh last 01/25/2023 and is here for postop visit. He says he did have significant pain postoperatively but feels much better now. He denies any other complaints. He says he feels well overall and wants to be able to return to work soon. [facility] Medical History Insomnia Migraines Inguinal hernia of right side without obstruction or gangrene Non-rheumatic aortic regurgitation Surgical History History of right inguinal hernia repair History of ear surgery H/O colonoscopy History of carpal tunnel surgery of right wrist Family History Father No problems noted. Mother No problems noted. Social History Patient Tobacco Use Status: Never used Tobacco Review of Systems Const Denies chills and Denies fever(s) Card Denies chest pain, Denies dyspnea and Denies dyspnea on exertion Resp Denies cough, Denies dyspnea and Denies dyspnea on exertion GI Denies hematochezia and Denies change in bowel habits Denies hematuria and Denies difficulty urinating Musc Denies back pain and Denies limited range of motion Neuro Denies focal weakness and Denies convulsions Psych Denies depression and Denies mood swings Physical Exam Vital Signs: Last Vital Signs Pulse 61 02/07/23 14:34 BP 142/73 H 02/07/23 14:34 Const General: comfortable and no acute distress Resp Effort & Inspection: normal respiratory effort GI Other: Right inguinal hernia repair site is well healed, repair intact, no infection Assessment & Plan Assessment & Plan (1) Inguinal hernia of right side without obstruction or gangrene: Code(s): K40.90 - Unilateral inguinal hernia, without obstruction or gangrene, not specified as recurrent Plan: Status post repair with mesh. He is incision is well healed. I advised him to avoid lifting more on than 20 lb for at least 2 more weeks. He wants to go back to work so I told him that he can go back to work on TuesdayFebruary 14 without any lifting of more than 20 lb until I see him back in the office for for a postop visit in about a month. Coding Level of Care Code Global (91601) Diagnoses Inguinal hernia of right side without obstruction or gangrene K40.90
[2023-02-07 14:34] VITALS: BP 142/73; PULSE 61
== END 2023-02-07 14:47 | disposition home or self-care (01) ==
PROVIDERS: Visit Provider Surgery
DX: K40.90 Unilateral inguinal hernia, without obstruction or gangrene, not specified as recurrent (principal)
CPT/HCPCS: 99024

== ENCOUNTER → 2023-02-07 14:07 | Outpatient (BNVA) | payer MEDICAID, SELFPAY | PROVIDERS: Visit Provider Surgery ==

== ENCOUNTER 2023-03-10 09:06 | Outpatient (AMB) | payer MEDICAID, SELFPAY ==
--- NOTE | 2023-03-10 09:31 | MHC.OFFVIS ---
Intake Intake Visit Reasons: S/P RIH w/mesh Intake Note: This patient presents for a post-op assessment status post right inguinal hernia repair with mesh. Patient c/o; reports occasional discomfort surgical site, reports feeling stabbing sensation surgical site when site. Assembly Inspector Helper Required: Yes Assembly Inspector Helper Language: Medical Apparatus Model Maker Name: Syed Information Interpreted: non-clinical & clinical Accompanied by: Self / Same As Patient Allergies No Known Allergies Allergy (Verified 03/10/23 09:39) HPI S/P RIH w/mesh HPI Details He is here for postop visit after right hernia repair over a month ago. He continues to do well. He does describe some occasional pain on the hernia repair site. He says that 1 of this sutures seemed to come out and drain although this appears dry now. [facility] Medical History Insomnia Migraines Inguinal hernia of right side without obstruction or gangrene Non-rheumatic aortic regurgitation Surgical History History of right inguinal hernia repair History of ear surgery H/O colonoscopy History of carpal tunnel surgery of right wrist Family History Father No problems noted. Mother No problems noted. Social History Patient Tobacco Use Status: Never used Tobacco Review of Systems Const Denies chills and Denies fever(s) Card Denies chest pain, Denies dyspnea and Denies dyspnea on exertion Resp Denies cough, Denies dyspnea and Denies dyspnea on exertion GI Denies hematochezia and Denies change in bowel habits Denies hematuria and Denies difficulty urinating Musc Denies back pain and Denies limited range of motion Neuro Denies focal weakness and Denies convulsions Psych Denies depression and Denies mood swings Physical Exam Const General: comfortable and no acute distress GI Other: Right inguinal hernia repair site is well healed, repair intact, no discharge, no induration, no redness Assessment & Plan Assessment & Plan (1) Inguinal hernia of right side without obstruction or gangrene: Code(s): K40.90 - Unilateral inguinal hernia, without obstruction or gangrene, not specified as recurrent Plan: status post repair with mesh. This repair site appears intact. The incision is well healed. There is no discharge or any induration. I told him that the absorbable sutures are not completely so for about 2-3 months so he may notice some drainage from this due to foreign body reaction. There is no infection at this time and it looks like this is actually well healed I did tell him that if he has concerns down the line, he is welcome to come back to the office to be re-evaluated. He is comfortable with this plan. Coding Level of Care Code Global (32774) Diagnoses Inguinal hernia of right side without obstruction or gangrene K40.90
== END 2023-03-10 09:37 | disposition home or self-care (01) ==
PROVIDERS: Visit Provider Surgery
DX: K40.90 Unilateral inguinal hernia, without obstruction or gangrene, not specified as recurrent (principal)
CPT/HCPCS: 99024

== ENCOUNTER → 2023-03-10 09:06 | Outpatient (BNVA) | payer MEDICAID, SELFPAY | PROVIDERS: Visit Provider Surgery | DX: K40.90 Unilateral inguinal hernia, without obstruction or gangrene, not specified as recurrent (principal) ==

== ENCOUNTER 2023-07-07 10:07 | Outpatient (REF) | payer MEDICAID, SELFPAY ==
[2023-07-07 11:32] LABS: MANUAL DIFF FLAG NO
[2023-07-07 11:47] LABS: Basophils Percent Auto 0.2 % (0-2); Eosinophils Absolute Auto 0.2 X10*3/uL (0.0-0.4); Eosinophils Percent Auto 4.8 % (0-4); Hematocrit 43.3 % (42.0-52.0); Hemoglobin 14.7 g/dl (14.0-18.0); Imm Gran Abs Auto 0.01 X10*3/uL (0.00-0.03); Imm Gran Pct Auto 0.2 % (0.0-0.4); Lymphocytes Absolute Auto 1.2 X10*3/uL (1.2-4.9); Lymphocytes Percent Auto 27.4 % (20-40); Mean Corpuscular HGB Conc 33.9 g/dl (31.0-36.0); Mean Corpuscular Hemoglobin 30.6 pg (27.0-33.0); Mean Corpuscular Volume 90.2 fL (80.0-98.0); Mean Platelet Volume 10.9 fL (9.4-12.4); Monocytes Absolute Auto 0.6 X10*3/uL (0.1-1.2); Monocytes Percent Auto 12.6 % (2-11); Neutrophils Absolute Auto 2.4 x10*3/uL (2.0-8.3); Neutrophils Percent Auto 54.8 % (45-73); Platelet Count 194 X10*3/uL (160-400); Red Cell Distribution Width 13.5 % (11.0-16.0); White Blood Count 4.4 X10*3/uL (4.8-10.8)
[2023-07-07 12:20] LABS: Anion Gap 14 (12-20); Blood Urea Nitrogen 17 mg/dL (9-16); Calcium 9.3 mg/dL (8.4-10.2); Carbon Dioxide 25 mmol/L (22-29); Chloride 106 mmol/L (96-108); Estimated Glomerular Filt Rate 54; Glucose Random 111 mg/dL (60-115); Sodium 141 mmol/L (135-145)
[2023-07-07 12:39] LABS: Folate 8.6 ng/mL (> or = 4.0); Vitamin B12 400 pg/mL (200-900)
[2023-07-07 12:49] LABS: TSH reflex Free T4 1.03 uIU/mL (0.32-4.0)
== END 2023-07-07 10:08 | disposition home or self-care (01) ==
LOC: HO.HHCL 10:07
PROVIDERS: Visit Provider Nurse Practitioner Primary Care
DX: R20.0 Anesthesia of skin (principal)
CPT/HCPCS: 36415; 80048; 82607; 82746; 84443; 85025

== ENCOUNTER 2023-08-18 09:18 | Outpatient (AMB) | payer MEDICAID, SELFPAY ==
[2023-08-18 09:19] VITALS: BP 120/72; PULSE 70; RESP 18; BMI 30.9
--- NOTE | 2023-08-18 09:19 | MHC.OFFVIS ---
Vital Signs 08/18/23 09:19 Height 5 ft 7 in Weight 197 lb 1.492 oz BMI 30.9 BP 120/72 Blood Pressure Location Lt brachial Position Sitting Respiration 18 Pulse 70 Intake Visit Reasons: 1 yr f/up Appeals Analyst Required: Yes Appeals Analyst Name: [id number] Accompanied by: Self / Same As Patient Allergies No Known Allergies Allergy (Verified 03/10/23 09:39) Medication List - Last Reconciled 08/18/23 by Willie George MD utdkocemjx-ceqxfyxrrtnqq-ljjf 50-300-40 mg (Fioricet) 1 cap PO TID PRN cetirizine 10 mg PO QAM ibuprofen 600 mg PO Q6H PRN melatonin 10 mg PO BEDTIME HPI Comments Details: Wily is here for follow-up regarding aortic regurgitation. Various symptoms that are very difficult to understand in spite of using legal contracts specialist. Some chest pains off and on but not clearly exertional. He also had a couple of dizzy episodes, but difficult to say if fit is from standing up or looking up. I asked this numerous times with the legal contracts specialist but could not clarify it. [facility] Medical History Insomnia Migraines Inguinal hernia of right side without obstruction or gangrene Non-rheumatic aortic regurgitation Surgical History History of right inguinal hernia repair History of ear surgery H/O colonoscopy History of carpal tunnel surgery of right wrist Family History Father No problems noted. Mother No problems noted. Social History Patient Tobacco Use Status: Never used Tobacco Review of Systems Const Denies chills, Denies fatigue, Denies fever(s), Denies frequent falls, Denies weakness, Denies weight gain and Denies weight loss ENT Denies dizziness Card Denies chest pain, Denies leg edema, Denies lightheadedness, Denies palpitations, Denies dyspnea and Denies dyspnea on exertion Resp Denies cough, Denies dyspnea and Denies dyspnea on exertion GI Denies hematochezia Musc Denies abnormal gait, Denies muscle weakness, Denies numbness, Denies radiating pain into limb and Denies tingling Neuro Denies abnormal gait, Denies dizziness, Denies frequent falls, Denies numbness, Denies tingling and Denies weakness Endo Denies fatigue and Denies palpitations Physical Exam Vital Signs: Last Vital Signs Pulse 70 08/18/23 09:19 Resp 18 08/18/23 09:19 BP 120/72 08/18/23 09:19 BMI result Body Mass Index 30.9 Const General: comfortable and no acute distress Orientation/consciousness: patient oriented x3 HEENT Other: Unremarkable Head: Yes normal to inspection Neck Neck: Yes normal visual inspection Chest Chest palpation & inspection: normal inspection of the chest Resp Auscultation: clear to auscultation bilaterally Cardio Palpation: normal PMI Heart sounds: S1 normal heart sound present, S2 normal heart sound present, no gallops, no murmurs and no rubs GI Palpation (GI): Soft to palpation Back/Spine/Pelvis Other: unremarkable Skin General skin exam: no rashes or lesions noted Neuro General: patient oriented x3 Extrem General: Yes normal to inspection Psych Mental Status: mental status grossly normal Office Procedures EKG Details: EKG with sinus rhythm at 70/Min; right bundle-branch block pattern and leftward axis. Previous EKG did not show the right bundle-branch block. [id number], Complete Assessment & Plan Assessment & Plan (1) Non-rheumatic aortic regurgitation: Code(s): I35.1 - Nonrheumatic aortic (valve) insufficiency Category: Medical Plan: In the last echocardiogram, trileaflet aortic valve with mild to moderate regurgitation. Sinus of Valsalva measures 4 cm. Can be monitored periodically. (2) Precordial chest pain: Code(s): R07.2 - Precordial pain Category: Medical Plan: Atypical chest pain. In the past, exercise EKG was unremarkable. Currently, EKG shows a right bundle-branch block not seen before. Get an exercise stress echocardiogram. (3) Right bundle branch block: Code(s): I45.10 - Unspecified right bundle-branch block Category: Medical Plan: New finding. Get stress echo as above. Orders: Orders CA echo stress exercise Today R07.2 - Precordial pain Coding Level of Care Code Est Pt Level 4 (01115) Diagnoses Non-rheumatic aortic regurgitation I35.1 Precordial chest pain R07.2 Right bundle branch block I45.10 CPT Codes EKG - CPT: 83145-[id number], Complete ([id number])
== END 2023-08-18 09:48 | disposition home or self-care (01) ==
PROVIDERS: PCP Nurse Practitioner Primary Care; Visit Provider Internal Medicine
DX: I35.1 Nonrheumatic aortic (valve) insufficiency (principal); R07.2 Precordial pain; I45.10 Unspecified right bundle-branch block
CPT/HCPCS: 93010; 99214

== ENCOUNTER → 2023-08-18 09:18 | Outpatient (BNVA) | payer MEDICAID, SELFPAY | PROVIDERS: PCP Nurse Practitioner Primary Care; Visit Provider Internal Medicine | DX: R07.2 Precordial pain (principal); I35.1 Nonrheumatic aortic (valve) insufficiency; I45.10 Unspecified right bundle-branch block | CPT/HCPCS: 93005; 99212 ==

== ENCOUNTER 2023-09-20 08:54 | Outpatient (AMB) | payer MEDICAID, SELFPAY ==
[2023-09-20 08:57] VITALS: BP 122/66; PULSE 64; BMI 30.7
--- NOTE | 2023-09-20 08:57 | MHC.OFFVIS ---
Vital Signs 09/20/23 08:57 Height 5 ft 7 in Weight 195 lb 12.328 oz BMI 30.7 BP 122/66 Blood Pressure Location Rt brachial Position Sitting Pulse 64 Intake Visit Reasons: Soft Tissue Lipoma upper back Intake Note: Patient referred by PCP Dr. Salcido for lipoma on upper back. Present for 10yrs. Patient c/o: feels like it is getting deeper and enlarging. Production Director Required: Yes Accompanied by: Self / Same As Patient Allergies No Known Allergies Allergy (Verified 09/20/23 09:01) HPI Comments Details: Patient presents with a significant other for evaluation of 2 back cyst type masses. He has had these many years time. He does not think they are increasing in size but they are occasionally discharging whitish material was squeezed eyes significant other. Patient has had a ganglion cyst of his right wrist excised and a right flank lipoma and is concern at these processes are somehow related. [facility] Medical History Anal fistula Insomnia Migraines Inguinal hernia of right side without obstruction or gangrene Non-rheumatic aortic regurgitation Surgical History History of right inguinal hernia repair History of ear surgery H/O colonoscopy History of carpal tunnel surgery of right wrist Family History Father No problems noted. Mother No problems noted. Social History Patient Tobacco Use Status: Never used Tobacco Physical Exam Vital Signs: Last Vital Signs Pulse 64 09/20/23 08:57 BP 122/66 09/20/23 08:57 BMI result Body Mass Index 30.7 Back/Spine/Pelvis Other: Patient has 2 very very small sebaceous cyst type lesions limited luteum measuring a few mm each in the midline upper and mid back. Assessment & Plan Assessment & Plan (1) Epidermal inclusion cyst: Code(s): L72.0 - Epidermal cyst Category: Surgical Plan At present, and recommendation is to treat these conservatively. They are very small, and are not causing him significant symptoms. Should increased in size become more symptomatic with the patient really insists on having them removed, he has been instructed to call the office and arrangements were made for excision. In the meantime, patient will otherwise follow-up p.r.n.. I explained to the patient that the skin lesions are very different from his other above-mentioned pathology is which were excised. All questions answered. Coding Level of Care Code New Pt Level 4 (75927) Diagnoses Epidermal inclusion cyst L72.0
== END 2023-09-20 10:00 | disposition home or self-care (01) ==
PROVIDERS: PCP Nurse Practitioner Primary Care; Visit Provider Surgery
DX: L72.0 Epidermal cyst (principal)
CPT/HCPCS: 99203

== ENCOUNTER → 2023-09-20 08:54 | Outpatient (BNVA) | payer MEDICAID, SELFPAY | PROVIDERS: PCP Nurse Practitioner Primary Care; Visit Provider Surgery | DX: L72.0 Epidermal cyst (principal) | CPT/HCPCS: 99202 ==

== ENCOUNTER 2024-07-11 14:02 | Outpatient (AMB) | payer MEDICAID, SELFPAY ==
--- NOTE | 2024-07-11 14:05 | A.OFFVIS_ITS ---
Vital Signs 07/11/24 14:10 Height 5 ft 7 in Weight 195 lb BMI 30.5 BP 131/71 Blood Pressure Location Rt brachial Position Sitting Pulse 58 Intake Visit Reasons: Colonoscopy screening Intake Note: This patient presents for recall colonoscopy screening. Pt c/o; reports no complaints. Optical Lathe Operator Required: Yes Optical Lathe Operator Services: Optical Lathe Operator Present (Syed) Information Interpreted: non-clinical & clinical Accompanied by: Self / Same As Patient Allergies No Known Allergies Allergy (Verified 07/11/24 14:12) Medication List - Last Reviewed 07/11/24 by LILO Russ tuyrdmrywg-syjenurvcashq-rswv 50-300-40 mg (Fioricet) 1 cap PO TID PRN cetirizine 10 mg PO QAM ibuprofen 600 mg PO Q6H PRN melatonin 10 mg PO BEDTIME sildenafil (Viagra) 25 - 50 mg PO sodium,potassium,mag sulfates 17.5-3.13-1.6 gram (Suprep Bowel Prep Kit) DILUTE; drink full amount early evening before AND next morning at least 2 hr before procedure; follow w 960 mL water PO HPI HPI Colonoscopy screening: Details: 63-year-old male referred for screening colonoscopy. He was recommended to undergo colonoscopy every 5 years as he has a paternal uncle who of colon cancer. He says he has multiple family members with colon polyps. Review of her records show that his last colonoscopy was in [address] Berg and this was unremarkable. He was told to undergo a colonoscopy every 5 years. He denies significant GI complaints. [facility] Medical History (Updated 07/11/24 @ 14:06 by Roosevelt Olson MD) Colon cancer screening Anal fistula Insomnia Migraines Inguinal hernia of right side without obstruction or gangrene Non-rheumatic aortic regurgitation Surgical History (Updated 09/20/23 @ 10:38 by Alan Olmos MD) History of right inguinal hernia repair History of ear surgery H/O colonoscopy History of carpal tunnel surgery of right wrist Family History Father No problems noted. Mother No problems noted. Social History Patient Tobacco Use Status: Never used Tobacco Review of Systems Const Denies chills and Denies fever(s) Card Denies chest pain, Denies dyspnea and Denies dyspnea on exertion Resp Denies cough, Denies dyspnea and Denies dyspnea on exertion GI Denies hematochezia and Denies change in bowel habits Denies hematuria and Denies difficulty urinating Musc Denies back pain and Denies limited range of motion Neuro Denies focal weakness and Denies convulsions Psych Denies depression and Denies mood swings Physical Exam Const General: comfortable and no acute distress Orientation/consciousness: patient oriented x3 Neck Neck: Yes no lymphadenopathy Resp Auscultation: clear to auscultation bilaterally Cardio Rhythm: regular rhythm GI Palpation (GI): Soft to palpation, nontender and no guarding Neuro General: patient oriented x3 Assessment & Plan Assessment & Plan (1) Colon cancer screening: Code(s): Z12.11 - Encounter for screening for malignant neoplasm of colon Category: Medical Plan: I reviewed with him the technique of colonoscopy for screening colon cancer. I explained the risks including but not limited to bleeding and perforation, as well as the benefits and alternatives. He understands and wants to proceed. Medications: New sodium,potassium,mag sulfates 17.5-3.13-1.6 gram (Suprep Bowel Prep Kit) DILUTE; drink full amount early evening before AND next morning at least 2 hr before procedure; follow w 960 mL water PO 354 mL 0RF Coding Level of Care Code Est Pt Level 3 (69831) Diagnoses Colon cancer screening Z12.11
[2024-07-11 14:10] VITALS: BP 131/71; PULSE 58; BMI 30.5
--- OUTSIDE RECORDS SUMMARY | 2024-07-11 16:25 | XMS_ITS | Encounter Summary ---
Author Organization [facility] Address [address] [place] [address] [address]t [place] [address] Care Team Providers Care Senior Game Advisor Name Role Phone Maggie Salcido Primary Care Provider [phone] Encounter Details Date Type Department Care Team (Latest Contact Info) Description 12/05/2018 Abstract [facility] Dental, Provider, DDS Social History Tobacco Use Types Packs/Day Years Used Date Smoking Tobacco: Never Assessed Sex and Gender Information Value Date Recorded Sex Assigned at Male 02/22/2022 10:35 AM EDT Legal Sex Male 10:35 AM EDT Gender Identity Male 08/04/2022 2:36 PM EDT Sexual Orientation Choose not to disclose 2021 10:35 AM EDT documented as of this encounter Plan of Treatment Not on file documented as of this encounter Visit Diagnoses Not on filedocumented in this encounter Care Teams Senior Game Advisor Relationship Specialty Start Date End Date Maggie Salcido ANP [address] [place] [id number] PCP - General Family Medicine 09/17/21 documented as of this encounter
--- OUTSIDE RECORDS SUMMARY | 2024-07-11 16:25 | XMS_ITS | Encounter Summary ---
Author Organization [facility] Address [address] [facility] 7t [place] [address] Care Team Providers Care Yoke Setter Name Role Phone Maggie Salcido Primary Care Provider [phone] Reason for Visit * Reason Comments Med Refill Encounter Details Date Type Department Care Team ([facility] st Contact Info) Description 07/13/2023 Refill [facility] [address] [place] [address] Maggie Salcido ANP [address] [place] [address] Social History Tobacco Use Types Packs/Day Years Used Date Smoking Tobacco: Never Passive Smoke Exposure: Never Smokeless Tobacco: Never Depression Answer Date Recorded Patient Health Questionnaire-9 Score 0 11/16/2022 Housing Stability Answer Date Recorded What is your housing situation today? I have phani gaston 02/07/[address] you li ve. Do you have problems with any of the following? None of the above 02/07/2023 Food Insecurity Answer Date Recorded Within the past 12 months, y ou worried that your food would run out before you got money to buy more: Never True 02/07/2023 Within the past 12 months,th e food you bought just didn't last and you didn't have enough money to get more: Never True Transportation Answer Date Recorded In the past 12 months, has l ack of transportation kept you from medical appts, meetings, work or from getting things needed for daily living? No 02/07/2023 Utilities Answer Date Recorded In the past 12 months, has t he electric, gas, oil or water company threatened to shut off services in your home? No 02/07/2023 Depression Answer Date Recorded Patient Health Questionnaire-2 Score 0 11/16/2022 Sex and Gender Information Value Date Recorded Sex Assigned at Male 02/22/2022 10:35 AM EDT Legal Sex Male 10:35 AM EDT Gender Identity Male 08/04/2022 2:36 PM EDT Sexual Orientation Choose not to disclose 2021 10:35 AM EDT documented as of this encounter Plan of Treatment Not on file documented as of this encounter Visit Diagnoses Not on filedocumented in this encounter Additional Health Concerns Assessment Noted Time PHQ-9 Depression Total Score: 0 11/17/19 23 9:29 AM EDT documented as of this encounter Care Teams Yoke Setter Relationship Specialty Start Date End Date Maggie Salcido ANP [address] [place] [id number] PCP - General Family Medicine 09/17/21 documented as of this encounter
--- OUTSIDE RECORDS SUMMARY | 2024-07-11 16:25 | XMS_ITS | Clinical Summary ---
Author Organization [facility] Address [address] [facility] 7t [place] [address] Care Team Providers Care Quality Lab Technician Name Role Phone Maggie Salcido Primary Care Provider Allergies No known active allergies Medications hydrOXYzine pamoate (Vistaril) 25 MG capsule take 1-2 capsule by oral route at bedtime as needed for insomnia 45 capsule 3 Active Blood Pressure kitIndications:E levated blood pressure reading without diagnosis of hypertension 1 kit in the morning. 1 kit 4 Active melatonin 5 MG tablet TAKE 2 TABLETS BY MOUTH AT BEDTIME 60 tablet 11 4 Active Diclofenac Sodium 1 % gel APPLY 2 GRAMS AFFECTED AREA(S) FOUR TIMES DAILY 200 g 3 4 Active cetirizine (ZyrTEC) 10 MG tablet TAKE 1 TABLET BY MOUTH EVERY DAY NEEDED FOR ALLERGIES OR RHINITIS 90 tablet 1 4 Active sildenafil (Viagra) 25 MG tabletIndication s:Erectile dysfunction, unspecified erectile dysfunction type Take 1-2 tablets (25-50mg) 30-60 minutes before intercourse as needed 20 tablet 1 4 Active butalbital-aceta minophen-caffein e 50-325-40 MG tabletIndication s:Migraine with aura and without status migrainosus, not intractable TAKE 1 TO 2 TABLETS BY MOUTH EVERY 4 HOURS NEEDED FOR MIGRAINE DO NOT EXCEED 6 TABLETS IN 24 HOURS 18 tablet 1 4 Active Active Problems Problem Noted Date Diagnosed Date Screening for malignant neoplasm of colon 2023 Overview (07/07/2023): Done at [facility] 2019 per chart, per pt 2020, no record in [facility] though done at [facility] per pt. Repeat 5 years per pt. Aortic valve regurgitation 11/15/2022 Overview (11/16/2022): [facility] cardiology Dr. George Echo 06/2022 Conclusions: - The left ventricular systolic function is normal.?? The ? calculated ejection fraction is 55% by biplane method. ? - There is moderate septal and moderate basal asymmetric ??hypertrophy. ? - There is mild to moderate aortic valve regurgitation. 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 W/ h/o otosclerosis R ear Insomnia 07/13/2018 Degenerative joint disease of hand 06/19/2018 Chronic sinusitis 06/09/2018 Migraine with aura 06/09/2018 Overweight 06/09/2018 Prediabetes 06/09/2018 Encounters Date Type Department Care Team Description 07/06/2024 Population Health Risk Score [facility] () Department [address] [place] [phone] Provider, Population Health Generic 06/13/2024 Telephone [facility] [address] [place] [address] Janay Torrez MA 06/13/2024 Telephone [facility] [address] [place] [address] Janay Torrez MA august recall (Called pt to book f/u appt in august recall day for september 05 ,pt did not answer left vm .sending letter) 04/17/2024 Telephone [facility] [address] [place] [address] Maggie Salcido ANP from Last 3 Months Immunizations Name Administration Dates Next Due Hep B, adult 01/06/2022,09/30/2021,08/25/2021 Influenza injectable quadriv alent preservative free 03/12/2019,06/09/2018 Pneumococcal Conjugate PCV 20 03/08/2024 Tdap 06/09/2018 Zoster, Recombinant 05/18/2024,01/06/2022 Family History Medical History Relation Name Comments Diabetes Father Diabetes Mother Diabetes type I Son 2 kids w/ T1 DM Relation Name Status Comments Father Mother Son Social History Tobacco Use Types Packs/Day Years Used Date Smoking Tobacco: Never Passive Smoke Exposure: Never Smokeless Tobacco: Never Depression Answer Date Recorded Patient Health Questionnaire-9 Score 3 03/08/2024 Patient Health Questionnaire-9 Score 3 03/08/2024 Last PHQ-9: Questionnaire Data Not on file 1 05/08/2023 Housing Stability Answer Date Recorded What is [...] Answer Date Recorded Patient Health Questionnaire-2 Score 2 03/08/2024 Sex and Gender Information Value Date Recorded Sex Assigned at Male 02/22/2022 10:35 AM EDT Legal Sex Male 10:35 AM EDT Gender Identity Male 08/04/2022 2:36 PM EDT Sexual Orientation Choose not to disclose 2021 10:35 AM EDT Last Filed Vital Signs Vital Sign Reading Time Taken Comments Blood Pressure 135/75 03/08/2024 9:37 AM EST Pulse 55 03/08/2024 9:37 AM EST Temperature 36.2 ??C (97.1 ??F) 03/08/2024 9:37 AM ES T Respiratory Rate 12 03/08/2024 9:37 AM EST Oxygen Saturation 93% 03/08/2024 9:37 AM EST Inhaled Oxygen Concentration - - Weight 91.5 kg (201 lb 12.8 oz) 03/08/2024 9:37 AM EST Height 172.4 cm (5' 7.88 ) 03/08/2024 9:37 AM ES T Body Mass Index 30.79 03/08/2024 9:37 AM EST Plan of Treatment Health Maintenance Due Date Last Done Comments CT Colonography 1962 FIT DNA/Cologuard 1962 FIT 1962 FOBT 1962 HIV Screening 1962 Sigmoidoscopy 1962 Hepatitis C Screening 1980 RSV Patients and Patients Aged 60 years or older (1 - Risk 60-74 years 1-dose series) 2022 SDOH Screening 11/17/2023 11/16/2022 Colonoscopy 01/02/2024 01/01/2019 Colorectal Cancer Screening 01/02/2024 Diabetes: Hemoglobin A1C 07/06/2024 024, 11/16/2022, 01/04/2022, Additional history exists Influenza Vaccine (#1) 2024 03/12/2019, 2018 Postponed from 12/25/2023 (Patient Refused) Alcohol/Substance Use Screening 03/08/2025 03/08/2024 COVID-19 Vaccine ( season) 2025 05/06/2021, 09/12/2020, 05/22/2020 Postponed from 12/25/2023 (Patient Refused) Depression Screening 03/08/2025 03/08/2024, 03/08/20 24 Tobacco Screening 03/08/2025 03/08/2024 Lipid Panel 11/17/2027 11/16/2022, 12/24, 03/17/2020 DTaP/Tdap/Td Vaccines (2 - Td or Tdap) 06/09/2028 06/09/2018 Hepatitis B Vaccines Completed 01/06/2022, 09/30/2021, 08/25/2021 Pneumococcal Vaccine: 50+ Years Completed 03/08/2024 Zoster Vaccines Completed 05/18/2024, 01/06/2022 HIB Vaccines Aged Out No longer eligi ble based on patient's age to complete this topic HPV Vaccines Aged Out No longer eligi ble based on patient's age to complete this topic Hepatitis A Vaccines Aged Out No long er eligible based on patient's age to complete this topic IPV Vaccines Aged Out No longer eligi ble based on patient's age to complete this topic Meningococcal Vaccine Aged Out No panfilo kalpana eligible based on patient's age to complete this topic RSV under 20 months Aged Out No longe r eligible based on patient's age to complete this topic Rotavirus Vaccines Aged Out No longer eligible based on patient's age to complete this topic Procedures Procedure Name Priority Date/Time Associated Diagnosis Comments POCT GLYCATED HEMOGLOBIN, TOTAL Routine 07/07/2023 9:40 AM EDT Prediabetes LIPID PANEL, STANDARD Routine 11/16/2022 10:29 AM EDT Prediabetes HM COLONOSCOPY Routine 01/01/2019 from Last 3 Months or Most Recently Relevant to Health Maintenance Results * POCT HGB A1C (07/07/2023 9:40 AM EDT) Hemoglobin A1C 5.7 4.0 - 6.0 % QC Media Lot # [id number] Lot# Expiration Date Blood 07/07/2023 9:40 AM EDT us Maggie [facility] POINT OF CARE TEST ENTER/EDIT OR DERABLES Final Result * Lipid Panel, Standard (11/16/2022 10:29 AM EDT) Triglycerides 124 mg/dL [facility] Comment:Desirable Triglyceri de: less than 150 mg/dLBorderline High Triglyceride 150-199 mg/dLHigh Triglyceride: 200-499 mg/dLVery High Triglyceride: greater than or equal to 5OO mg/dL Cholesterol 148 mg/dL [facility] Comment:Desirable Cholestero l: less than 200 mg/dLBorderline High Cholesterol: 200-239 mg/dLHigh Cholesterol: greater than 239 mg/dL LDL Cholesterol Calculated 92 mg/dl [facility] Comment:Desirable LDL: less than 100 mg/dLNear Optimal/Above Optimal LDL: 110- 129 mg/dLBorderline High LDL: 130-159 mg/dLHigh LDL: 160-189 mg/dLVery High LDL: greater than or equal to 190 mg/dL HDL Cholesterol 32 mg/dL [facility] Comment:Desirable HDL: great er than 40 mg/dL Note: This HDL assay may give artificially low results in patients with liver disease. Blood Venous blood specimen / Unknown 11/16/2022 10:29 AM EDT 11/16/2022 11:15 AM EDT Maggie [facility] LAB BLOOD ORDERABLES Final Resul t [facility] [address] [place] [phone] * Colonoscopy (01/01/2019) Colonoscopy Normal Normal Lalo Rabago MD HEALTH MAINTENANCE Edited Result - Final from Last 3 Months or Most Recently Relevant to Health Maintenance Insurance [facility] FULL Care Teams Quality Lab Technician Relationship Specialty Start Date End Date Maggie Salcido ANP [address] [place] [phone] PCP - General Family Medicine 09/17/21
--- OUTSIDE RECORDS SUMMARY | 2024-07-11 16:25 | XMS_ITS | Encounter Summary ---
Author Organization [facility] Address [address] [place] [address] 7t [place] [address] Care Team Providers Care Chief Of Field Operations Name Role Phone Maggie Salcido Primary Care Provider [phone] Reason for Visit * Reason Comments Med Refill Encounter Details Date Type Department Care Team ([facility] st Contact Info) Description 08/04/2022 Refill [facility] [address] [place] [address] Maggie Salcido ANP [address] [place] [address] Social History Tobacco Use Types Packs/Day Years [...] on filedocumented in this encounter Care Teams Chief Of Field Operations Relationship Specialty Start Date End Date Maggie Salcido ANP [address] [place] [address] PCP - General Family Medicine 09/17/21 documented as of this encounter
--- OUTSIDE RECORDS SUMMARY | 2024-07-11 16:25 | XMS_ITS | Encounter Summary ---
Author Organization [facility] Address [address] [facility] 7t [place] [address] Care Team Providers Care Orthotics Technician Name Role Phone Maggie Salcido SHARONA Primary Care Provider [phone] Encounter Details Date Type Department Care Team ([facility] st Contact Info) Description 07/06/2024 Population Health Risk Score [facility] (C[facility]) Department [address] [facility] [address] [place] [id number] Provider, Population Health Generic Social History Tobacco Use Types Packs/Day Years [...] Assessment Noted Time PHQ-9 Depression Total Score: 3 03/08/20 24 9:37 AM EST documented as of this encounter Care Teams Orthotics Technician Relationship Specialty Start Date End Date Maggie Salcido ANP [address] [place] [id number] PCP - General Family Medicine 09/17/21 documented as of this encounter
--- OUTSIDE RECORDS SUMMARY | 2024-07-11 16:25 | XMS_ITS | Encounter Summary ---
Author Organization [facility] Address [address] [facility] [address] 7t [place] [address] Care Team Providers Care Promotions Assistant Sales Marketing Name Role Phone Maggie Salcido SHARONA Primary Care Provider [phone] Encounter Details Date Type Department Care Team ([facility] st Contact Info) Description 06/13/2024 Telephone [facility] [address] [place] [address] Janay Torrez MA Social History Tobacco Use Types Packs/Day Years [...] documented as of this encounter Care Teams Promotions Assistant Sales Marketing Relationship Specialty Start Date End Date Maggie Salcido ANP [address] [place] [id number] PCP - General Family Medicine 09/17/21 documented as of this encounter
--- OUTSIDE RECORDS SUMMARY | 2024-07-11 16:25 | XMS_ITS | Encounter Summary ---
Author Organization [employer] Address [address] [facility] [address] [place] [address] Care Team Providers Care Vacuum Cleaner Repairer Name Role Phone Maggie Salcido Primary Care Provider [phone] Reason for Visit * Reason Onset Date Comments may recall 06/13/2024 Called pt to rey k f/u appt in august recall day for september 05 ,pt did not answer left vm .sending letter Encounter Details Date Type Department Care Team ([facility] Contact Info) Description 06/13/2024 Telephone [facility]INE [address] [place] [address] [place] august recall (Called pt to book f/u appt in august recall day for september 05 ,pt did not answer left vm .sending letter) Social History Tobacco Use Types Packs/Day Years [...] AM EDT documented as of this encounter Miscellaneous Notes * Telephone Encounter - Janay Torrez MA - 06/13/2024 2:56 PM EST Called pt to book f/u appt in august day for september 05 ,pt did not answer left vm .sending letter documented in this encounter Plan of Treatment Not on file documented as of this encounter Visit Diagnoses Not on filedocumented in this encounter Additional Health Concerns Assessment Noted Time PHQ-9 Depression Total Score: 3 03/08/20 24 9:37 AM EST documented as of this encounter Care Teams Vacuum Cleaner Repairer Relationship Specialty Start Date End Date Maggie Salcido ANP [address] [place] [address] PCP - General Family Medicine 09/17/21 documented as of this encounter
--- OUTSIDE RECORDS SUMMARY | 2024-07-11 16:25 | XMS_ITS | Encounter Summary ---
Author Organization [facility] Address [address] [facility] 7t [place] [address] Care Team Providers Care Paper Deliverer Name Role Phone Maggie Salcido Primary Care Provider [phone] Reason for Visit * Reason Comments Med Refill Encounter Details Date Type Department Care Team ([facility] st Contact Info) Description 04/21/2023 Refill [facility]INE [address] [place] [address] Maggie Salcido ANP [address] [place] [address] Migraine with aura and without status migrainosus, not intractable Social History Tobacco Use Types Packs/Day Years Used Date Smoking Tobacco: Never Assessed Depression Answer Date Recorded Patient Health Questionnaire-9 [...] documented as of this encounter Visit Diagnoses Diagnosis Migraine with aura and without status migrainosus, not intractable documented in this encounter Additional Health Concerns Assessment Noted Time PHQ-9 Depression Total Score: 0 11/17/19 23 9:29 AM EDT documented as of this encounter Care Teams Paper Deliverer Relationship Specialty Start Date End Date Maggie Salcido ANP [address] [place] [id number] PCP - General Family Medicine 09/17/21 documented as of this encounter
--- OUTSIDE RECORDS SUMMARY | 2024-07-11 16:25 | XMS_ITS | Encounter Summary ---
Author Organization [facility] Address [address] [facility] 7t [place] [address] Care Team Providers Care Licensed Guide Name Role Phone Maggie Salcido Primary Care Provider [phone] Encounter Details Date Type Department Care Team ([facility] st Contact Info) Description 08/16/2022 Orders Only [facility] MEDICINE [address] [place] [address] Bridgett Baumann LPN Social History Tobacco Use Types Packs/Day Years [...] on filedocumented in this encounter Care Teams Licensed Guide Relationship Specialty Start Date End Date Maggie Salcido ANP [address] [place] [address] PCP - General Family Medicine 09/17/21 documented as of this encounter
== END 2024-07-11 14:22 | disposition home or self-care (01) ==
LOC: HO.HGS 14:03
PROVIDERS: PCP Nurse Practitioner Primary Care; Visit Provider Surgery
DX: Z12.11 Encounter for screening for malignant neoplasm of colon (principal)
CPT/HCPCS: 99213

== ENCOUNTER → 2024-07-11 14:02 | Outpatient (BNVA) | payer MEDICAID, SELFPAY | PROVIDERS: PCP Nurse Practitioner Primary Care; Visit Provider Surgery | DX: Z12.11 Encounter for screening for malignant neoplasm of colon (principal) | CPT/HCPCS: 99212 ==

== ENCOUNTER 2024-09-21 08:13 | Outpatient (AMB) | payer MEDICAID, SELFPAY ==
--- OUTSIDE RECORDS SUMMARY | 2024-09-21 08:15 | XMS_ITS | Clinical Summary ---
Author Organization [facility] Address [address] [place] [address] Phone Care Team Providers Care Loan Representative Name Role Phone Maggie Salcido NP Primary Care Provider [phone] Allergies No known active allergies Encounters Date Type Department Care Team Description 09/10/2024 1:44 AM EDT - 09/10/2024 2:02 AM EDT Emergency [facility] Emergency [address] [place] [address] Bilateral hand pain (Primary Dx); Right forearm pain Discharge Disposition: Home or Self Care from Last 3 Months Social History Tobacco Use Types Packs/Day Years Used Date Smoking Tobacco: Never Smokeless Tobacco: Never Alcohol Use Standard Drinks/Week Comments Never 0 (1 standard drink = 0.6 oz pur e alcohol) Sex and Gender Information Value Date Recorded Sex Assigned at Not on file Legal Sex Male 7:55 AM EST Gender Identity Not on file Sexual Orientation Not on file Obstetrics History Last Filed Vital Signs Vital Sign Reading Time Taken Comments Blood Pressure 157/85 09/09/2024 10:09 PM EDT Pulse 88 09/09/2024 10:09 PM EDT Temperature 37 ??C (98.6 ??F) 09/09/2024 10:09 PM EDT Respiratory Rate 16 09/09/2024 10:09 PM EDT Oxygen Saturation 96% 09/09/2024 10:09 PM EDT Inhaled Oxygen Concentration - - Weight 88.5 kg (195 lb) 09/09/2024 10:09 PM EDT Height 170.2 cm (5' 7 ) 09/09/2024 10:09 PM EDT Body Mass Index 30.54 09/09/2024 10:09 PM EDT Plan of Treatment Health Maintenance Due Date Last Done Comments Colorectal Cancer Screening: Colonoscopy 04/04/2022 HIV Screening 04/04/2022 Hepatitis C Screening 04/04/2022 Social Influencers of Health Screening 04/04/2022 COVID-19 Vaccine (4 - 2023-2 5 season) 2023 05/06/2021, 09/12/2020, 05/22/2020 Influenza Vaccine (Season Ended) 2024 03/12/2019, 06/09/2018 Depression Screening 03/08/2025 03/08/2024 Cholesterol Screening (Lipid Panel) 11/17/2027 11/16/2022 DTaP,Tdap,and Td Vaccines (2 - Td or Tdap) 06/09/2028 06/09/2018 RSV Immunization Adult Patients (1 - 1-dose 75+ series) 2037 Hepatitis B Vaccines Completed 01/06/2022, 09/30/2021, 08/25/2021 Pneumococcal Vaccine: 50+ Years Completed 03/08/2024 Pneumococcal Vaccine: Pediatrics (0 to 5 Years) and At-Risk Patients (6 to 64 Years) Aged Out 03/08/2024 No longer eligible b ased on patient's age to complete this topic Zoster Vaccines Completed 05/18/2024, 01/06/2022 HIB Vaccines [...] on patient's age to complete this topic MMR Vaccines Aged Out No longer eligi ble based on patient's age to complete this topic Meningococcal ACWY Vaccine Aged Out N o longer eligible based on patient's age to complete this topic Meningococcal B Vaccine Aged Out No l onger eligible based on patient's age to complete this topic RSV Immunization Patients Under 20 months Aged Out No longer eligible b ased on patient's age to complete this topic Varicella Vaccines Aged Out No longer eligible based on patient's age to complete this topic Procedures Procedure Name Priority Date/Time Associated Diagnosis Comments XR FOREARM 2 VIEWS RIGHT STAT 09/09/2024 10:27 PM EDT XR HAND 3+ VIEWS BILAT STAT 09/09/2024 10:27 PM EDT from Last 3 Months Results * XR Forearm 2 Views Right (09/09/2024 10:27 PM EDT) Anatomical Region Laterality Modality Upper Extremities, Forearm Right Radio graphic Imaging 09/10/2024 8:42 AM EDT Impressions 09/10/2024 8:43 AM EDT A small degenerative olecranon osteophyte is present. Otherwise, normal examination, without acute findings. Code 55545 -------- FINAL REPORT -------- Dictated By: Trace Reid Dictated Date: 09/10/2024 08:42 ET Assigned Physician: Trace Reid Reviewed and Electronically Signed By: Trace Reid Signed Date: 09/10/2024 08:43 ET Workstation ID: [id number] Transcribed By: Self Edit Transcribed Date: 09/10/2024 08:42 ET Narrative 09/10/2024 8:43 AM EDT HISTORY: The patient is a 63-year-old male with pain in the right forearm following trauma. FINDINGS: AP and lateral radiographs of the right radius and ulna are obtained. The study demonstrates no fracture or dislocation. A small degenerative olecranon osteophyte is noted. No soft tissue abnormality is seen. Procedure Note Trace Reid MD - 09/10/2024 HISTORY: The patient is a 63-year-old male with pain in the right forearmfollowing trauma. FINDINGS: AP and lateral radiographs of the right radius and ulna areobtained. The study demonstrates no fracture or dislocation. A smalldegenerative olecranon osteophyte is noted. No soft tissue abnormality isseen. IMPRESSION: A small degenerative olecranon osteophyte is present. Otherwise, normalexamination, without acute findings. Code 36347 -------- FINAL REPORT -------- Dictated By: Trace Reid Dictated Date: 09/10/2024 08:42 ET Assigned Physician: Trace Reid Reviewed and Electronically Signed By: Trace Reid Signed Date: 09/10/2024 08:43 ET Workstation ID: [id number] Transcribed By: Self Edit Transcribed Date: 09/10/2024 08:42 ET Santos Banuelos MD IMG XR PROCEDURES Final Result * XR Hand 3+ Views bilat (09/09/2024 10:27 PM EDT) Anatomical Region Laterality Modality Upper Extremities, Hand Bilateral Radiogra phic Imaging 09/10/2024 8:43 AM EDT Impressions 09/10/2024 8:46 AM EDT Normal examination. Code 25130, 52023 -------- FINAL REPORT -------- Dictated By: Trace Reid Dictated Date: 09/10/2024 08:43 ET Assigned Physician: Trace Reid Reviewed and Electronically Signed By: Trace Reid Signed Date: 09/10/2024 08:46 ET Workstation ID: [id number] Transcribed By: Self Edit Transcribed Date: 09/10/2024 08:43 ET Narrative 09/10/2024 8:46 AM EDT HISTORY: The patient is a 63-year-old male with bilateral hand pain following trauma. FINDINGS: AP, lateral, and oblique views of the right hand, along with AP, lateral, and oblique views of the left hand, are obtained. The study demonstrates no fracture, dislocation, arthritic change, or other bony abnormality in either hand. No soft tissue abnormality is seen. Procedure Note Trace Reid MD - 09/10/2024 HISTORY: The patient is a 63-year-old male with bilateral hand painfollowing trauma. FINDINGS: AP, lateral, and oblique views of the right hand, along with AP,lateral, and oblique views of the left hand, are obtained. The studydemonstrates no fracture, dislocation, arthritic change, or other bonyabnormality in either hand. No soft tissue abnormality is seen. IMPRESSION: Normal examination. Code 82877, 49806 -------- FINAL REPORT -------- Dictated By: Trace Reid Dictated Date: 09/10/2024 08:43 ET Assigned Physician: Trace Reid Reviewed and Electronically Signed By: Trace Reid Signed Date: 09/10/2024 08:46 ET Workstation ID: [id number] Transcribed By: Self Edit Transcribed Date: 09/10/2024 08:43 ET Santos Doug Banuelos MD IMG XR PROCEDURES Final Result from Last 3 Months Insurance MEDICAID - [place] Care Teams Loan Representative Relationship Specialty Start Date End Date Maggie Salcido NP [address] [facility] [address] [place] [address] PCP - General 12/04/21
[2024-09-21 08:32] VITALS: BP 110/62; PULSE 58; BMI 30.6
--- NOTE | 2024-09-21 08:32 | MHC.OFFVIS ---
Vital Signs 09/21/24 08:32 Height 5 ft 7 in Weight 195 lb 5.273 oz BMI 30.6 BP 110/62 Blood Pressure Location Lt brachial Position Sitting Pulse 58 Pulse Source Monitor Intake Visit Reasons: 1 year f/u per NS Operations Supervisor Chemical Cleaning Required: Yes Operations Supervisor Chemical Cleaning Language: House Moving Supervisor Name: voice falk [phone] Allergies No Known Allergies Allergy (Verified 09/21/24 08:35) Medication List - Last Reconciled 09/21/24 by Joceline Elaine NP-Meghna bixiqtkbgw-xrxfxkwdupytj-fiob 50-300-40 mg (Fioricet) 1 cap PO TID PRN cetirizine 10 mg PO QAM ibuprofen 600 mg PO Q6H PRN melatonin 10 mg PO BEDTIME sildenafil (Viagra) 25 - 50 mg PO sodium,potassium,mag sulfates 17.5-3.13-1.6 gram (Suprep Bowel Prep Kit) DILUTE; drink full amount early evening before AND next morning at least 2 hr before procedure; follow w 960 mL water PO HPI HPI 1 year f/u per NS: Details: Wily is a 64-year-old male with past medical history of prediabetes, right bundle branch block, aortic regurgitation who presents for follow-up. Today he reports he has been doing well since his last visit July 2023. He has no cardiac symptoms to report. He denies chest discomfort, shortness of breath, heart palpitations, lightheadedness. He reports being mostly sedentary. Compliant with meds. Is concerned about the condition of his heart. [facility] Medical History Colon cancer screening Anal fistula Insomnia Migraines Inguinal hernia of right side without obstruction or gangrene Non-rheumatic aortic regurgitation Surgical History History of right inguinal hernia repair History of ear surgery H/O colonoscopy History of carpal tunnel surgery of right wrist Family History Father No problems noted. Mother No problems noted. Social History Patient Tobacco Use Status: Never used Tobacco Review of Systems Const All systems reviewed & are unremarkable except as noted in HPI and below ENT Denies dizziness Card Denies chest pain, Denies chest pain at rest, Denies chest pain with activity, Denies rapid heart rate, Denies pedal edema, Denies edema, Denies leg edema, Denies lightheadedness, Denies palpitations, Denies dyspnea, Denies dyspnea on exertion and Denies orthopnea Resp Denies cough, Denies dyspnea and Denies dyspnea on exertion GI Denies hematochezia and Denies change in stool character Musc Denies abnormal gait, Denies limited range of motion, Denies muscle cramps, Denies muscle weakness, Denies numbness, Denies radiating pain into limb, Denies stiffness and Denies tingling Neuro Denies abnormal gait, Denies dizziness, Denies numbness and Denies tingling Endo Denies palpitations Physical Exam Vital Signs: Last Vital Signs Pulse 58 09/21/24 08:32 BP 110/62 09/21/24 08:32 BMI result Body Mass Index 30.6 Const General: cooperative, healthy appearing, comfortable and no acute distress Orientation/consciousness: patient oriented x3 Neck Neck: Yes normal visual inspection and Yes no JVD Carotids: normal carotid upstroke Resp Effort & Inspection: normal respiratory effort Auscultation: clear to auscultation bilaterally, no crackles, no rales, no rhonchi and no wheezes Cardio Rate: regular rate Rhythm: regular rhythm Heart sounds: S1 normal heart sound present, S2 normal heart sound present, no gallops, no murmurs and no rubs Neuro General: patient oriented x3 Extrem General: Yes normal to inspection, No no pedal edema and No calf tenderness Psych Appearance: grossly normal Mental Status: mental status grossly normal Speech and movement: Normal speech and movement present Office Procedures EKG Details: Today, read by me sinus bradycardia, RBBB, rate 58, Qtc 420ms [id number]-Lucwtezrxtcarmphh, Complete Assessment & Plan Assessment & Plan (1) Non-rheumatic aortic regurgitation: Code(s): I35.1 - Nonrheumatic aortic (valve) insufficiency Category: Medical Plan: Last echo 06/30/2022 had shown EF 55% and lztq-pm-zzenimxw aortic regurgitation. He has no clinical signs of heart failure on examination. He expresses much concern about aortic valve finding. Will check echocardiogram for reassessment. Plan to call him with results. Cardiology follow-up 1 year, sooner if needed. (2) Right bundle branch block: Code(s): I45.10 - Unspecified right bundle-branch block Category: Medical Plan: Chronic finding on his EKG. (3) Precordial chest pain: Code(s): R07.2 - Precordial pain Category: Medical Plan: Prior reports of chest discomfort. Stress echocardiogram has been ordered last visit but not completed by him. At this time he denies chest discomfort. Plan I explained the condition of aortic valve insufficiency to the patient, emphasizing it was not severe during the last assessment. I highlighted the importance of reassessing with a follow-up echocardiogram. We discussed activity levels, symptoms to monitor, and the need for prompt consultation if symptoms occur. The patient will be notified post-echocardiogram with stable results, and follow-up is planned for one year. The conversation covered risks associated with increased physical activity and the benefits of staying active. Consent to the plan, including potential monitoring or interventions if necessary, was obtained. Orders: Orders CA echo transthoracic complete Today I35.1 - Nonrheumatic aortic (valve) insufficiency, I45.10 - Unspecified right bundle-branch block Patient Instructions: - Schedule echocardiogram as discussed. - Watch for symptoms like shortness of breath or chest discomfort. - Resume physical activity gradually, such as cycling, if no symptoms appear. - Return to the office sooner if symptoms develop or change. - Follow up in one year for a routine check if everything remains stable. Patient was informed and verbally consented to the use of an ambient scribe for clinic note documentation during this visit. Visit time spent on chart review, interview, assessment, orders, documentation. Coding Level of Care Code Est Pt Level 3 (21234) Complex EM visit Add On G2211 Diagnoses Non-rheumatic aortic regurgitation I35.1 Right bundle branch block I45.10 Precordial chest pain R07.2 CPT Codes EKG - CPT: 08206-Psnxeuxxephioprnu, Complete ([id number]) Time Spent (min) 24
== END 2024-09-21 09:06 | disposition home or self-care (01) ==
LOC: HO.HCS 08:13
PROVIDERS: PCP Nurse Practitioner Primary Care; Visit Provider Nurse Practitioner Family
DX: I35.1 Nonrheumatic aortic (valve) insufficiency (principal); I45.10 Unspecified right bundle-branch block; R07.2 Precordial pain
CPT/HCPCS: 93010; 99213

== ENCOUNTER → 2024-09-21 08:13 | Outpatient (BNVA) | payer MEDICAID, SELFPAY | PROVIDERS: PCP Nurse Practitioner Primary Care; Visit Provider Nurse Practitioner Family | DX: I35.1 Nonrheumatic aortic (valve) insufficiency (principal); I45.10 Unspecified right bundle-branch block; R07.2 Precordial pain; R94.31 Abnormal electrocardiogram [ECG] [EKG]; R00.1 Bradycardia, unspecified | CPT/HCPCS: 93005; 99212 ==

== ENCOUNTER 2024-10-10 11:04 | Emergency (ER) | payer MEDICAID, SELFPAY ==
[2024-10-10 11:12] VITALS: BP 130/65; PULSE 61; RESP 16; TEMP 36.2; O2SAT 99; BMI 28.6
--- NOTE | 2024-10-10 11:17 | ED.GENADULT ---
HPI - General Adult General Chief complaint: Nausea/Vomiting/Diarrhea Stated complaint: Diarrhea for 3 days, Vomiting Related Data Home Medications ?Medication ?Instructions ?Recorded ?Confirmed epnmakzixi-ezzdebkwbtdkx-xymyjhyf 1 cap PO TID PRN Migraine Headache 04/14/20 09/21/24 50 mg-300 mg-40 mg capsule (Fioricet) melatonin 5 mg tablet 10 mg PO BEDTIME 08/19/22 09/21/24 cetirizine 10 mg tablet 10 mg PO QAM 11/29/22 09/21/24 sildenafil 25 mg tablet (Viagra) 25 - 50 mg PO 07/11/24 09/21/24 Previous Rx's ?Medication ?Instructions ?Recorded ibuprofen 600 mg tablet 600 mg PO Q6H PRN pain #30 tabs 01/25/23 sodium,potassium,mag sulfates 17.5 See Rx Instructions PO .COMPLEX 07/11/24 gram-3.13 gram-1.6 gram oral soln #354 mL (Suprep Bowel Prep Kit) Allergies Allergy/AdvReac Type Severity Reaction Status Date / Time No Known Allergies Allergy Verified 10/10/24 11:13 [facility] Past Medical History Medical History Colon cancer screening Anal fistula Insomnia Migraines Inguinal hernia of right side without obstruction or gangrene Non-rheumatic aortic regurgitation Surgical History History of right inguinal hernia repair History of ear surgery H/O colonoscopy History of carpal tunnel surgery of right wrist Family History Family History Father No problems noted. Mother No problems noted. Social History Social History Patient Tobacco Use Status: Never used Tobacco Physical Exam ED Vital Signs: Vital Signs - 24 hr 10/10/24 11:12 Temperature 97.2 F Pulse Rate 61 Respiratory Rate 16 Blood Pressure 130/65 Pulse Oximetry 99 Oxygen Delivery Method Room Air BMI result Body Mass Index 28.6 Course Course Course Narrative: 64-year-old male presents for evaluation abdominal pain with nausea vomiting, diarrhea. He reports this has been on and off for several months. Plan for labs, urinalysis, stool studies. Denies risk factors for C diff Medical Decision Making Lab Data 10/10/24 11:23 10/10/24 11:23 Labs: Lab Results 10/10/24 Range/Units 11:23 WBC 6.0 (4.8-10.8) X10*3/uL RBC 5.06 (4.60-5.80) X10*6/uL Hgb 15.9 (14.0-18.0) g/dl Hct 45.7 (42.0-52.0) % MCV 90.3 (80.0-98.0) fL MCH 31.4 (27.0-33.0) pg MCHC 34.8 (31.0-36.0) g/dl RDW 14.3 (11.0-16.0) % Plt Count 182 (160-400) X10*3/uL MPV 10.4 (9.4-12.4) fL Immature Gran % (Auto) 0.2 (0.0-0.4) % Neut % (Auto) 77.7 H (45-73) % Lymph % (Auto) 12.3 L (20-40) % [place] % (Auto) 9.3 (2-11) % Eos % (Auto) 0.3 (0-4) % Baso % (Auto) 0.2 (0-2) % Lymph # (Auto) 0.7 L (1.2-4.9) X10*3/uL [place] # (Auto) 0.6 (0.1-1.2) X10*3/uL Eos # (Auto) 0.0 (0.0-0.4) X10*3/uL Baso # (Auto) 0.0 (0.0-0.2) X10*3/uL Abs Immat Gran (auto) 0.01 (0.00-0.03) X10*3/uL Absolute Neuts (auto) 4.7 (2.0-8.3) x10*3/uL Absolute Nucleated RBC 0.000 (0.0-0.012) X10*3/uL Nucleated RBC % (auto) 0.0 (0.0-0.2) /100WBC Sodium 141 (135-145) mmol/L Potassium 4.3 (3.3-5.1) mmol/L Chloride 114 H (96-108) mmol/L Carbon Dioxide 23 (22-29) mmol/L Anion Gap 8 L (12-20) BUN 18 H (9-16) mg/dL Creatinine 1.36 (0.5-1.4) mg/dL Estim Creat Clear Calc 57.9 Estimated GFR 53 Random Glucose 102 (60-115) mg/dL Calcium 9.3 (8.4-10.2) mg/dL Magnesium 2.0 (1.6-2.6) mg/dL Total Bilirubin 0.6 (0.0-1.0) mg/dL AST 28 (5-37) U/L ALT 38 (0-40) U/L Alkaline Phosphatase 95 (39-117) U/L Total Protein 7.6 (6.5-8.0) g/dL Albumin 4.7 (3.5-5.0) g/dL Lipase 25 (8-78) U/L Influenza Type A (PCR) NEGATIVE (Negative) Influenza Type B (PCR) NEGATIVE (Negative) RSV RNA Qual (PCR) NEGATIVE (Negative) SARS-CoV-2 RNA (RT-PCR) NEGATIVE (Negative) Discharge Plan Discharge Clinical Impression: Vomiting Patient Disposition: Left W/O Completing Treatment Prescriptions: No Action ibuprofen 600 mg tablet 600 mg PO Q6H PRN (Reason: pain) Qty: 30 0RF cmvlfarcrn-yozarxweykryy-yalp [Fioricet] 50-300-40 mg capsule 1 cap PO TID PRN (Reason: Migraine Headache) melatonin 5 mg tablet 10 mg PO BEDTIME cetirizine 10 mg tablet 10 mg PO QAM sodium,potassium,mag sulfates [Suprep Bowel Prep Kit] 17.5-3.13-1.6 gram recon soln See Rx Instructions PO .COMPLEX Qty: 354 0RF Rx Instructions: DILUTE; drink full amount early evening before AND next morning at least 2 hr before procedure; follow w 960 mL water PO sildenafil [Viagra] 25 mg tablet 25 - 50 mg PO Discharge Date/Time: 10/10/24 14:35
[2024-10-10 11:28] LABS: MANUAL DIFF FLAG NO
[2024-10-10 11:30] LABS: Basophils Percent Auto 0.2 % (0-2); Eosinophils Percent Auto 0.3 % (0-4); Hematocrit 45.7 % (42.0-52.0); Hemoglobin 15.9 g/dl (14.0-18.0); Imm Gran Abs Auto 0.01 X10*3/uL (0.00-0.03); Imm Gran Pct Auto 0.2 % (0.0-0.4); Lymphocytes Absolute Auto 0.7 X10*3/uL (1.2-4.9); Lymphocytes Percent Auto 12.3 % (20-40); Mean Corpuscular HGB Conc 34.8 g/dl (31.0-36.0); Mean Corpuscular Hemoglobin 31.4 pg (27.0-33.0); Mean Corpuscular Volume 90.3 fL (80.0-98.0); Mean Platelet Volume 10.4 fL (9.4-12.4); Monocytes Absolute Auto 0.6 X10*3/uL (0.1-1.2); Monocytes Percent Auto 9.3 % (2-11); Neutrophils Absolute Auto 4.7 x10*3/uL (2.0-8.3); Neutrophils Percent Auto 77.7 % (45-73); Platelet Count 182 X10*3/uL (160-400); Red Blood Count 5.06 X10*6/uL (4.60-5.80); Red Cell Distribution Width 14.3 % (11.0-16.0)
[2024-10-10 11:46] LABS: Alanine Aminotransferase 38 U/L (0-40); Albumin Level 4.7 g/dL (3.5-5.0); Alkaline Phosphatase 95 U/L (39-117); Anion Gap 8 (12-20); Aspartate Amino Transferase 28 U/L (5-37); Bilirubin Total 0.6 mg/dL (0.0-1.0); Blood Urea Nitrogen 18 mg/dL (9-16); Calcium 9.3 mg/dL (8.4-10.2); Carbon Dioxide 23 mmol/L (22-29); Chloride 114 mmol/L (96-108); Creatinine Clr Calc Pharmacy 57.9; Estimated Glomerular Filt Rate 53; Glucose Random 102 mg/dL (60-115); Lipase 25 U/L (8-78); Potassium 4.3 mmol/L (3.3-5.1); Sodium 141 mmol/L (135-145); Total Protein 7.6 g/dL (6.5-8.0)
[2024-10-10 12:19] LABS: Influenza A PCR NEGATIVE (Negative); Influenza B PCR NEGATIVE (Negative); Resp Syncy Virus RNA Qual PCR NEGATIVE (Negative); SARS COV2 PCR INHOUSE NEGATIVE (Negative)
--- NOTE | 2024-10-10 14:31 | PC.NURSE ---
Pt. observed to be yelling at reg staff and walking out of WR with steady gait.
--- OUTSIDE RECORDS SUMMARY | 2024-10-10 16:42 | XMS_ITS | Clinical Summary ---
Author Organization [facility] Address [address] [place] [address] Phone Care Team Providers Care System Admin Name Role Phone Maggie Salcido NP Primary Care Provider [phone] Allergies No known active allergies Encounters Date Type Department Care Team Description 09/10/2024 1:44 AM EDT - 09/10/2024 2:02 AM EDT Emergency [facility] Emergency [address] [place] [address] Bilateral hand pain (Primary Dx); [...] 88 09/09/2024 10:09 PM EDT Temperature 37 C (98.6 F) 09/09/2024 10:09 PM EDT Respiratory Rate 16 [...] Otherwise, normal examination, without acute findings. Code 87205 -------- FINAL REPORT -------- Dictated By: Trace Reid Dictated Date: 09/10/2024 08:42 ET Assigned Physician: Trace Reid Reviewed and Electronically Signed By: Trace Reid Signed Date: 09/10/2024 08:43 ET Workstation ID: [id number] Transcribed By: Self Edit Transcribed Date: 09/10/2024 [...] present. Otherwise, normalexamination, without acute findings. Code 36264 -------- FINAL REPORT -------- Dictated By: Trace Reid Dictated Date: 09/10/2024 08:42 ET Assigned Physician: Trace Reid Reviewed and Electronically Signed By: Trace Reid Signed Date: 09/10/2024 08:43 ET Workstation ID: [id number] Transcribed By: Self Edit Transcribed Date: 09/10/2024 08:42 ET Santos Banuelos MD IMG XR PROCEDURES Final Result * XR Hand 3+ Views bilat (09/09/2024 10:27 PM EDT) Anatomical Region Laterality Modality Upper Extremities, Hand Bilateral Radiogra phic Imaging 09/10/2024 8:43 AM EDT Impressions 09/10/2024 8:46 AM EDT Normal examination. Code 18863, 15522 -------- FINAL REPORT -------- Dictated By: Trace Reid Dictated Date: 09/10/2024 08:43 ET Assigned Physician: Trace Reid Reviewed and Electronically Signed By: Trace Reid Signed Date: 09/10/2024 08:46 ET Workstation ID: [id number] Transcribed By: Self Edit Transcribed Date: 09/10/2024 [...] abnormality is seen. IMPRESSION: Normal examination. Code 69331, 35862 -------- FINAL REPORT -------- Dictated By: Trace Reid Dictated Date: 09/10/2024 08:43 ET Assigned Physician: Trace Reid Reviewed and Electronically Signed By: Trace Reid Signed Date: 09/10/2024 08:46 ET Workstation ID: [id number] Transcribed By: Self Edit Transcribed Date: 09/10/2024 08:43 ET Santos Doug Banuelos MD IMG XR PROCEDURES Final Result from Last 3 Months Insurance MEDICAID - [place] Care Teams System Admin Relationship Specialty Start Date End Date Maggie Salcido NP [address] [address] PCP - General 12/04/21
== END 2024-10-10 14:35 | disposition left against medical advice (07) ==
PROVIDERS: Physician Assistant; Emergency Provider Emergency Medicine; PCP Nurse Practitioner Primary Care
DX: R11.2 Nausea with vomiting, unspecified (principal); Z03.818 Encounter for observation for suspected exposure to other biological agents ruled out; Z53.21 Procedure and treatment not carried out due to patient leaving prior to being seen by health care provider; J45.909 Unspecified asthma, uncomplicated
CPT/HCPCS: 0241U; 80053; 83690; 83735; 85025; 99281; 99283

== ENCOUNTER → 2024-12-06 08:13 | Outpatient (REF) | payer MEDICAID, SELFPAY ==
--- NOTE | 2024-12-06 08:15 | CA_ITS ---
Transthoracic Echocardiogram Patient (Last, First, Middle): Wily Jones, Gender: Male Date of : 1960 Age: 64 Procedure Date: 12/06/2024 Procedure Type: Transthoracic Echocardiogram Location: OP Height: 170.18 cm Weight: 86.18 kg BSA: 1.98 m2 Heart Rate: 55 bpm BP: 110 / 62 mmHg Certified Respiratory Therapist: SB/GORGE Referring MD: Joceline Elaine SUPERINTENDENT MAINTENANCE-C Projection Printer: Clem Hewitt MD Symptoms: I35.1 - Nonrheumatic aortic (valve) insufficiency Study Quality: Adequate ECG Rhythm: Bradycardia Conclusions: - 1. Normal LV ejection fraction 55-60% with impaired relaxation filling pattern 2. Twoq-yq-ynjrxuzn aortic regurgitation 3. Normal RV systolic pressure 4. Upper limits of normal ascending aortic size 5. No pericardial effusion Findings Left Ventricle Normal left ventricular size, thickness, and systolic function. The visually estimated ejection fraction is between 55-60%. Spectral Doppler is indicative of an impaired relaxation filling pattern. Right Ventricle Normal right ventricular cavity size and systolic function. Atria The left atrium is likely dilated. There is no evidence of interatrial shunt. The right atrium is normal in size. Aortic Valve Normal aortic valve structure and function. There is no aortic valve stenosis. There is mild to moderate aortic valve regurgitation. Mitral Valve Normal mitral valve structure and function. There is trace mitral valve regurgitation. There is no mitral valve stenosis. Pulmonic Valve The pulmonic valve was not well visualized. Tricuspid Valve Likely normal tricuspid valve structure and function. There is trace tricuspid valve regurgitation. The right ventricular systolic pressure is normal. The right ventricular systolic pressure is 23 mmHg. Normal right atrial pressure. There is no evidence of pulmonary hypertension. Great Vessels The pulmonary artery was not well visualized. There is no dilatation of the ascending aorta measuring 3.60 cm. Venous The inferior vena cava is normal in size and collapses greater than 50% with inspiration. Pericardium/Pleural There is no evidence of pericardial effusion. Prior Study Comparison No significant change compared to prior study dated: 06/30/2022. Measurements 2D Linear Measurements IVSd: 1.03 0.6-0.9/0.6-1.0 cm LVIDd: 5.72 3.9-5.3/4.2-5.9 cm LVIDd Index: 2.89 2.4-3.2/2.2-3.1 cm/m2 LVIDs: 2.39 2.0-3.6 cm LVPWd: 0.64 0.7-1.1 cm LA Diam: 4.70 2.7-3.8/3.0-4.0 cm LAIDs Index: 2.37 1.5-2.3 cm/m2 LV Mass: 225.26 67-162/88-224 g LV Mass Index: 113.77 43-95/49-115 g/m2 LVOT Diam: 2.30 3.0+(-)1.3 cm 2D Systolic Function EF 4C: 45.30 >55% EF 2C: 60.40 >55% EF BiP: 54.70 >55% Mitral Valve MV Pk E: 0.50 MV PK A: 0.44 MV Decel Time: 175.00 E/A: 1.10 E'Lateral: 9.79 E'Medial: 5.77 E/E' Med: 8.70 E/E' Lat: 5.10 PHT: 51.00 MVA PHT: 4.31 Decel Stephens: 2.87 Aortic Valve AoV Pk Ciaran: 1.24 AoV Mn Ciaran: 0.84 AoV VTI: 0.28 AoV Pk Grad: 6.00 Aov Mn Grad: 4.00 NENA Cont.VTI: 3.47 AI Pk Ciaran: 3.00 AI VTI: 1.73 AI Stephens: 0.92 LVOT LVOT Pk Ciaran: 1.03 LVOT Mn Ciaran: 0.61 LVOT VTI: 0.23 LVOT Pk Grad: 4.00 LVOT Mn Grad: 2.00 LVOT Diam: 2.30 LVOT Area: 4.15 Diastolic Function MV Pk E: 0.50 MV Pk A: 0.44 E/A: 1.10 E'Medial: 5.77 E/E' Med: 8.70 E' Laterial: 9.79 E/E' Lat: 5.10 Right Ventricle TAPSE (mm): 26.30 TVS' Ciaran: 14.90 Tricuspid Valve TR Pk Ciaran: 2.25 TR Pk Grad: 20.00 RA Press: 3.00 RVSP: 23.00 Great Vessels Aorta Sinus of Valsalva: 3.90 2.0-3.5 cm Ao Asc: 3.60 2.1-3.4 cm Pulmonary Veins Pulm Vein S/D 0.80 Pulmonary Valve PV Pk Ciaran: 0.64 Peak PV Grad: 2.00 Updated in Other Vendor System with Status of Final Clem Hewitt MD electronically signed on 12/06/2024 5:14:29 PM with status of Final
--- OUTSIDE RECORDS SUMMARY | 2024-12-06 08:18 | XMS_ITS | Encounter Summary ---
Author Organization [employer] Address [address] [facility] 7t [place] [address] Care Team Providers Care Marine Service Operator Name Role Phone Maggie Salcido Primary Care Provider [phone] Reason for Visit * Reason Comments Med Refill Encounter Details Date Type Department Care Team ([facility] st Contact Info) Description 11/25/2024 Refill [facility] MEDICINE [address] [place], [place] [phone] Maggie Salcido ANP [address] [place] [address] Erectile dysfunction, unspecified erectile dysfunction type Social History Tobacco Use Types Packs/Day Years [...] as of this encounter Visit Diagnoses Diagnosis Erectile dysfunction, unspecified erectile dysfunction type documented in this encounter Additional Health Concerns Assessment Noted Time PHQ-9 Depression Total Score: 3 03/08/20 24 9:37 AM EST documented as of this encounter Care Teams Marine Service Operator Relationship Specialty Start Date End Date Maggie Salcido ANP [address] [place] [address] PCP - General Family Medicine 09/17/21 documented as of this encounter
--- OUTSIDE RECORDS SUMMARY | 2024-12-06 08:18 | XMS_ITS | Clinical Summary ---
Author Organization [facility] Address [address] [place] [address] Phone Care Team Providers Care Supervisor Name Role Phone Maggie Salcido NP Primary Care Provider [phone] Allergies No known active allergies Encounters Date Type Department Care Team Description 09/10/2024 1:44 AM EDT - 09/10/2024 2:02 AM EDT Emergency [facility] Emergency [address] [place] [address] Bilateral hand pain (Primary Dx); [...] 2023-2 5 season) 2023 05/06/2021, 09/12/2020, 05/22/2020 Depression Screening 04/25/2024 Influenza Vaccine (#1) 2024 9, 06/09/2018 Cholesterol Screening (Lipid Panel) 11/17/2027 11/16/2022 DTaP,Tdap,and [...] Otherwise, normal examination, without acute findings. Code 40620 -------- FINAL REPORT -------- Dictated By: Trace Reid Dictated Date: 09/10/2024 08:42 ET Assigned Physician: Trace Reid Reviewed and Electronically Signed By: Trace Reid Signed Date: 09/10/2024 08:43 ET Workstation ID: [id number] Transcribed By: Self Edit Transcribed Date: 09/10/2024 [...] present. Otherwise, normalexamination, without acute findings. Code 08850 -------- FINAL REPORT -------- Dictated By: Trace Reid Dictated Date: 09/10/2024 08:42 ET Assigned Physician: Trace Reid Reviewed and Electronically Signed By: Trace Reid Signed Date: 09/10/2024 08:43 ET Workstation ID: [id number] Transcribed By: Self Edit Transcribed Date: 09/10/2024 08:42 ET Santos Banuelos MD IMG XR PROCEDURES Final Result * XR Hand 3+ Views bilat (09/09/2024 10:27 PM EDT) Anatomical Region Laterality Modality Upper Extremities, Hand Bilateral Radiogra phic Imaging 09/10/2024 8:43 AM EDT Impressions 09/10/2024 8:46 AM EDT Normal examination. Code 65838, 93388 -------- FINAL REPORT -------- Dictated By: Trace Reid Dictated Date: 09/10/2024 08:43 ET Assigned Physician: Trace Reid Reviewed and Electronically Signed By: Trace Reid Signed Date: 09/10/2024 08:46 ET Workstation ID: [id number] Transcribed By: Self Edit Transcribed Date: 09/10/2024 [...] abnormality is seen. IMPRESSION: Normal examination. Code 68061, 73674 -------- FINAL REPORT -------- Dictated By: Trace Reid Dictated Date: 09/10/2024 08:43 ET Assigned Physician: Trace Reid Reviewed and Electronically Signed By: Trace Reid Signed Date: 09/10/2024 08:46 ET Workstation ID: [id number] Transcribed By: Self Edit Transcribed Date: 09/10/2024 08:43 ET Santos B Vin SAENZ IMG XR PROCEDURES Final Result from Last 3 Months Insurance MEDICAID - [place] Care Teams Supervisor Relationship Specialty Start Date End Date Maggie Salcido NP [address] [phone] PCP - General 12/04/21
== END ==
LOC: HO.CARD 08:13
PROVIDERS: PCP Nurse Practitioner Primary Care; Visit Provider Nurse Practitioner Family
DX: I35.1 Nonrheumatic aortic (valve) insufficiency (principal); I45.10 Unspecified right bundle-branch block
CPT/HCPCS: 93306

== ENCOUNTER → 2024-12-06 08:15 | Outpatient (BNV) | payer MEDICAID, SELFPAY | PROVIDERS: PCP Nurse Practitioner Primary Care; Visit Provider Internal Medicine Cardiovascular Disease | DX: I35.1 Nonrheumatic aortic (valve) insufficiency (principal) | CPT/HCPCS: 93306 ==

== ENCOUNTER 2025-01-16 08:55 | Outpatient (AMB) | payer MEDICAID, SELFPAY ==
--- NOTE | 2025-01-16 09:01 | MHC.OFFVIS ---
Vital Signs 01/16/25 09:14 Height 5 ft 7 in Weight 191 lb BMI 29.9 Intake Visit Reasons: re-discuss colonoscopy (over 6mths since LV) Intake Note: Patient presents to re-discuss colonoscopy. Pt c/o; No complaints. Hx: Right inguinal hernia repair (01/25/23) MATT:07/11/2024 Fagoting Machine Operator Required: Yes Fagoting Machine Operator Language: [employer] Services: Fagoting Machine Operator Present Fagoting Machine Operator Name: Syed Accompanied by: Self / Same As Patient Allergies No Known Allergies Allergy (Verified 01/16/25 09:14) Medication List - Last Reconciled 01/16/25 by Roosevelt Olson MD [id number] 50-300-40 mg (Fioricet) 1 cap PO TID PRN cetirizine 10 mg PO QAM ibuprofen 600 mg PO Q6H PRN melatonin 10 mg PO BEDTIME sildenafil (Viagra) 25 - 50 mg PO sodium,potassium,mag sulfates 17.5-3.13-1.6 gram (Suprep Bowel Prep Kit) DILUTE; drink full amount early evening before AND next morning at least 2 hr before procedure; follow w 960 mL water PO HPI HPI re-discuss colonoscopy (over 6mths since LV): Details: 63-year-old male referred for screening colonoscopy. He was recommended to undergo colonoscopy every 5 years as he has a paternal uncle who of colon cancer. He says he has multiple family members with colon polyps. Review of her records show that his last colonoscopy was in [address] Berg and this was unremarkable. He was told to undergo a colonoscopy every 5 years. He denies significant GI complaints. I had actually seen him last June, and schedule him colonoscopy but he said he was unable to do this. [facility] Medical History Colon cancer screening Anal fistula Insomnia Migraines Inguinal hernia of right side without obstruction or gangrene Non-rheumatic aortic regurgitation Surgical History History of right inguinal hernia repair History of ear surgery H/O colonoscopy History of carpal tunnel surgery of right wrist Family History Father No problems noted. Mother No problems noted. Social History Patient Tobacco Use Status: Never used Tobacco Review of Systems Const Denies chills and Denies fever(s) Card Denies chest pain, Denies dyspnea and Denies dyspnea on exertion Resp Denies cough, Denies dyspnea and Denies dyspnea on exertion GI Denies hematochezia and Denies change in bowel habits Denies hematuria and Denies difficulty urinating Musc Denies back pain and Denies limited range of motion Neuro Denies focal weakness and Denies convulsions Psych Denies depression and Denies mood swings Physical Exam Vital Signs: BMI result Body Mass Index 29.9 Const General: comfortable and no acute distress Orientation/consciousness: patient oriented x3 Neck Neck: Yes no lymphadenopathy Resp Auscultation: clear to auscultation bilaterally Cardio Rhythm: regular rhythm GI Palpation (GI): Soft to palpation, nontender and no guarding Neuro General: patient oriented x3 Assessment & Plan Assessment & Plan (1) Family history of polyps in the colon: Comment: Father with paternal uncle dying of colon cancer Code(s): Z83.719 - Family history of colon polyps, unspecified Category: Medical Plan: He had a paternal uncle who had colon cancer he was recommended by Dr. Berg to undergo a colonoscopy every 5 years. I reviewed with him the technique of colonoscopy. I explained the risks, benefits, and alternatives. He says he understands and agrees to proceed. Coding Level of Care Code Est Pt Level 3 (08248) Diagnoses Family history of polyps in the colon Z83.719
[2025-01-16 09:14] VITALS: BMI 29.9
--- OUTSIDE RECORDS SUMMARY | 2025-01-16 10:30 | XMS_ITS | Encounter Summary ---
Author Organization [employer] Address [address] [facility] 7t [place] [address] Care Team Providers Care Diploma Medical Assistant Name Role Phone Maggie Salcido Primary Care Provider [phone] Reason for Visit * Reason Comments Med Refill Encounter Details Date Type Department Care Team ([facility] st Contact Info) Description 04/21/2023 Refill [facility] MEDICINE [address] [place] [address] Maggie Salcido ANP 230 [place] [address] Migraine with aura and without status migrainosus, [...] documented as of this encounter Care Teams Diploma Medical Assistant Relationship Specialty Start Date End Date Maggie Salcido ANP [address] [place] [address] PCP - General Family Medicine 09/17/21 documented as of this encounter
--- OUTSIDE RECORDS SUMMARY | 2025-01-16 10:30 | XMS_ITS | Clinical Summary ---
Author Organization [facility] Address [address] [place] [address] Phone Care Team Providers Care Car Deliverer Name Role Phone Maggie Salcido NP Primary Care Provider Allergies No known active allergies Social History [...] topic Insurance MEDICAID - [place] Care Teams Car Deliverer Relationship Specialty Start Date End Date Maggie Salcido NP [address] [place] [phone] PCP - General 12/04/21
--- OUTSIDE RECORDS SUMMARY | 2025-01-16 10:30 | XMS_ITS | Encounter Summary ---
Author Organization [employer] Address [address] [place] [address] 7t [place] [address] Care Team Providers Care Expenditure Requisition Clerk Name Role Phone Maggie Salcido Primary Care Provider [phone] Encounter Details Date Type Department Care Team ([facility] st Contact Info) Description 08/16/2022 Orders Only [facility] MEDICINE [address] [place] [address] Bridgett Baumann LPN Social History Tobacco Use [...] on filedocumented in this encounter Care Teams Expenditure Requisition Clerk Relationship Specialty Start Date End Date Maggie Salcido ANP [address] [place] [address] PCP - General Family Medicine 09/17/21 documented as of this encounter
--- OUTSIDE RECORDS SUMMARY | 2025-01-16 10:30 | XMS_ITS | Encounter Summary ---
Author Organization [employer] Address [address] [facility] 7t [place] [address] Care Team Providers Care Printing Manager Name Role Phone Maggie Salcido Primary Care Provider [phone] Reason for Visit * Reason Comments Med Refill Encounter Details Date Type Department Care Team ([facility] st Contact Info) Description 11/25/2024 Refill [facility] MEDICINE [address] [place], [place] [phone] Maggie Salcido ANP [address] [place] [address] Erectile dysfunction, unspecified erectile dysfunction type Social [...] documented as of this encounter Care Teams Printing Manager Relationship Specialty Start Date End Date Maggie Salcido ANP [address] [place] [address] PCP - General Family Medicine 09/17/21 documented as of this encounter
--- OUTSIDE RECORDS SUMMARY | 2025-01-16 10:30 | XMS_ITS | Encounter Summary ---
Author Organization [employer] Address [address] [place] [address] 7 [place] [address] Care Team Providers Care Senior Medical Billing Specialist Name Role Phone Maggie Salcido Primary Care Provider [phone] Reason for Visit * Reason Comments Med Refill Encounter Details Date Type Department Care Team ([facility] st Contact Info) Description 08/04/2022 Refill [facility] MEDICINE [address] [place] [address] Maggie Salcido ANP [address] [place] [address] Social History Tobacco Use Types Packs/Day Years [...] filedocumented in this encounter Care Teams Senior Medical Billing Specialist Relationship Specialty Start Date End Date Maggie Salcido ANP [address] [place] [address] PCP - General Family Medicine 09/17/21 documented as of this encounter
--- OUTSIDE RECORDS SUMMARY | 2025-01-16 10:30 | XMS_ITS | Clinical Summary ---
Author Organization [employer] Address [address] [facility] [address] [place] [address] Care Team Providers Care Catering Assistant Name Role Phone Maggie Salcido Primary Care Provider [phone] Allergies No known active allergies Medications hydrOXYzine [...] of colon 2023 Overview (07/07/2023): Done at [facility] [place] per chart, per pt 2020, no record in [employer] though done at [facility] per pt[facility] Repeat 5 years per pt. Aortic valve regurgitation 11/15/2022 Overview (11/16/2022): [facility] [place]. George Echo 06/2022 Conclusions: - [...] Type Department Care Team Description 11/25/2024 Refill [facility] [address] [place] [address] Maggie Salcido ANP Erectile dysfunction, unspecified erectile dysfunction type 10/28/2024 Refill [facility] [address] [place] [address] Maggie Salcido ANP from Last 3 Months [...] Blood 07/07/2023 9:40 AM EDT [facility] POINT OF CARE TEST ENTER/EDIT OR DERABLES Final Result * Lipid Panel, Standard (11/16/2022 10:29 AM EDT) Triglycerides 124 mg/dL [facility] Comment:Desirable Triglyceri de: less than 150 mg/dLBorderline High Triglyceride 150-199 mg/dLHigh Triglyceride: 200-499 mg/dLVery High Triglyceride: greater than or equal to 5OO mg/dL Cholesterol 148 mg/dL [facility] Comment:Desirable Cholestero l: less than 200 mg/dLBorderline High Cholesterol: 200-239 mg/dLHigh Cholesterol: greater than 239 mg/dL LDL Cholesterol Calculated 92 mg/dl [facility] Comment:Desirable LDL: less than 100 mg/dLNear Optimal/Above Optimal LDL: 110- 129 mg/dLBorderline High LDL: 130-159 mg/dLHigh LDL: 160-189 mg/dLVery High LDL: greater than or equal to 190 mg/dL HDL Cholesterol 32 mg/dL [facility] Comment:Desirable HDL: great er than 40 mg/dL Note: This HDL assay may give artificially low results in patients with liver disease. Blood Venous blood specimen / Unknown 11/16/2022 10:29 AM EDT 11/16/2022 11:15 AM EDT Maggie TABOR LAB BLOOD ORDERABLES Final Resul t [facility] [address] [place] [address] [phone] * Hm Colonoscopy (01/01/2019) Colonoscopy Normal Normal Lalo Rabago MD HEALTH MAINTENANCE Edited Result - Final from Last 3 Months or Most Recently Relevant to Health Maintenance Insurance [facility] C3 HSN FULL * Guarantor: Florencio [employer] Account Type Relation to Patient Date of Phone Billing Address Personal/Family Self [address] [place] [address] Care Teams Catering Assistant Relationship Specialty Start Date End Date Maggie Salcido ANP [address] [place] [address] PCP - General Family Medicine 09/17/21
--- OUTSIDE RECORDS SUMMARY | 2025-01-16 10:30 | XMS_ITS | Encounter Summary ---
Author Organization [employer] Address [address] [facility] [address] [place] [address] Care Team Providers Care Phlebotomist Medical Lab Assistant Name Role Phone Maggie Salcido Primary Care Provider [phone] Reason for Visit * Reason Comments Med Refill Encounter Details Date Type Department Care Team ([facility] st Contact Info) Description 07/13/2023 Refill [facility] [address] [place] [address] Maggie Salcido ANP [address] [place] [address] Social History Tobacco Use Types Packs/Day Years [...] documented as of this encounter Care Teams Phlebotomist Medical Lab Assistant Relationship Specialty Start Date End Date Maggie Salcido ANP [address] [place] [id number] PCP - General Family Medicine 09/17/21 documented as of this encounter
--- OUTSIDE RECORDS SUMMARY | 2025-01-16 10:30 | XMS_ITS | Encounter Summary ---
Author Organization [employer] Address [address] [place] [address] [address] [place] [address] Care Team Providers Care Hardwood Floor Layer Name Role Phone Maggie Salcido Primary Care Provider [phone] Encounter Details Date Type Department Care Team (Latest Contact Info) Description 12/05/2018 Abstract [facility] Dental, Provider, DDS Social History [...] on filedocumented in this encounter Care Teams Hardwood Floor Layer Relationship Specialty Start Date End Date Maggie Salcido ANP [address] [place] [id number] PCP - General Family Medicine 09/17/21 documented as of this encounter
== END 2025-01-16 09:13 | disposition home or self-care (01) ==
LOC: HO.HGS 08:56
PROVIDERS: PCP Nurse Practitioner Primary Care; Visit Provider Surgery
DX: Z83.719 Family history of colon polyps, unspecified (principal)
CPT/HCPCS: 99213

== ENCOUNTER → 2025-01-16 08:55 | Outpatient (BNVA) | payer MEDICAID, SELFPAY | PROVIDERS: PCP Nurse Practitioner Primary Care; Visit Provider Surgery | DX: Z83.719 Family history of colon polyps, unspecified (principal) | CPT/HCPCS: 99212 ==

== ENCOUNTER 2025-02-01 07:05 | Day surgery (SDC) | payer MEDICAID, SELFPAY ==
--- OUTSIDE RECORDS SUMMARY | 2025-01-15 16:09 | XMS_ITS | Encounter Summary ---
Author Organization [employer] Address [address] [place] [address] 7 [place] [address] Care Team Providers Care Bias Machine Operator Helper Name Role Phone Maggie Salcido Primary Care Provider [phone] Reason for Visit * Reason Comments Med Refill Encounter Details Date Type Department Care Team ([facility] st Contact Info) Description 08/04/2022 Refill [facility] MEDICINE [address] [place] [phone] Maggie Salcido ANP 230 [place] [address] Social History Tobacco Use Types Packs/Day Years [...] on filedocumented in this encounter Care Teams Bias Machine Operator Helper Relationship Specialty Start Date End Date Maggie Salcido ANP [address] [place] [address] PCP - General Family Medicine 09/17/21 documented as of this encounter
--- OUTSIDE RECORDS SUMMARY | 2025-01-15 16:09 | XMS_ITS | Encounter Summary ---
Author Organization [employer] Address [address] [facility] 7t [place] [address] Care Team Providers Care Machine Marker Name Role Phone Maggie Salcido Primary Care Provider [phone] Reason for Visit * Reason Comments Med Refill Encounter Details Date Type Department Care Team ([facility] st Contact Info) Description 11/25/2024 Refill [facility] MEDICINE [address] [place], [place] [phone] Maggie Salcido ANP 230 [place] [address] Erectile dysfunction, unspecified erectile dysfunction type Social [...] documented as of this encounter Care Teams Machine Marker Relationship Specialty Start Date End Date Maggie Salcido ANP [address] [place] [address] PCP - General Family Medicine 09/17/21 documented as of this encounter
--- OUTSIDE RECORDS SUMMARY | 2025-01-15 16:09 | XMS_ITS | Clinical Summary ---
Author Organization [facility] Address [address] [place] [address] Phone Care Team Providers Care Field Artillery Crewmember Name Role Phone Maggie Salcido NP Primary Care Provider [phone] Allergies No known active allergies Social History Tobacco Use Types Packs/Day Years [...] 04/04/2022 Social Influencers of Health Screening 04/04/2022 Depression Screening 04/25/2024 COVID-19 Vaccine (2024- 6 season) 2024 05/06/2021, 09/12/2020, 05/22/2020 Influenza Vaccine (#1) 2024 9, 06/09/2018 Cholesterol [...] on patient's age to complete this topic Insurance MEDICAID - [place] Care Teams Field Artillery Crewmember Relationship Specialty Start Date End Date Maggie Salcido NP [address] [place] [phone] PCP - General 12/04/21
--- OUTSIDE RECORDS SUMMARY | 2025-01-15 16:09 | XMS_ITS | Encounter Summary ---
Author Organization [employer] Address [address] [place] [address] 7t [place] [address] Care Team Providers Care Manager Talent Acquisition Name Role Phone Maggie Salcido Primary Care Provider [phone] Encounter Details Date Type Department Care Team ([facility] st Contact Info) Description 08/16/2022 Orders Only [facility] MEDICINE [address] [place] [address] Bridgett Baumann LPN Social History Tobacco Use [...] on filedocumented in this encounter Care Teams Manager Talent Acquisition Relationship Specialty Start Date End Date Maggie Salcido ANP 230 [place] [address] PCP - General Family Medicine 09/17/21 documented as of this encounter
--- OUTSIDE RECORDS SUMMARY | 2025-01-15 16:09 | XMS_ITS | Encounter Summary ---
Author Organization [employer] Address [address] [place] [address] 7t [place] [address] Care Team Providers Care Mold Presser Name Role Phone Maggie Salcido Primary Care Provider [phone] Encounter Details Date Type Department Care Team (Latest Contact Info) Description 12/05/2018 Abstract [facility] CONVERSIONS Dental, Provider, DDS Social History Tobacco [...] on filedocumented in this encounter Care Teams Mold Presser Relationship Specialty Start Date End Date Maggie Salcido ANP [address] [place] [address] PCP - General Family Medicine 09/17/21 documented as of this encounter
--- OUTSIDE RECORDS SUMMARY | 2025-01-15 16:09 | XMS_ITS | Encounter Summary ---
Author Organization [employer] Address [address] [facility] 7t [place] [address] Care Team Providers Care Workplace Trainer And Assessor Name Role Phone Maggie Salcido Primary Care Provider [phone] Reason for Visit * Reason Comments Med Refill Encounter Details Date Type Department Care Team ([facility] st Contact Info) Description 04/21/2023 Refill [facility] MEDICINE [address] [place] [address] Maggie Salcido ANP [address] [place] [address] Migraine with aura and without status migrainosus, [...] Time PHQ-9 Depression Total Score: 0 11/17/19 9:29 AM EDT documented as of this encounter Care Teams Workplace Trainer And Assessor Relationship Specialty Start Date End Date Maggie aSlcido ANP [address] [place] [address] PCP - General Family Medicine 09/17/21 documented as of this encounter
--- OUTSIDE RECORDS SUMMARY | 2025-01-15 16:09 | XMS_ITS | Clinical Summary ---
Author Organization [employer] Address [address] [facility] 7t [place] [address] Care Team Providers Care Shoe Lacer Name Role Phone Maggie Salcido Primary Care Provider [phone] Allergies No known active allergies Medications hydrOXYzine [...] TIMES DAILY 200 g 3 4 Active sildenafil (Viagra) 25 MG tabletIndication s:Erectile dysfunction, unspecified erectile dysfunction type Take 1-2 tablets (25-50mg) 30-60 minutes before intercourse as needed 20 tablet 1 5 Active butalbital-aceta minophen-caffein e 50-325-40 MG tabletIndication s:Migraine with aura and without status migrainosus, not intractable TAKE 1 TO 2 TABLETS BY MOUTH EVERY 4 HOURS NEEDED FOR MIGRAINE. DO NOT EXCEED 6 TABLETS IN 24 HOURS 18 tablet 1 5 Active cetirizine (ZyrTEC) 10 MG tablet TAKE 1 TABLET BY MOUTH EVERY DAY NEEDED FOR ALLERGIES OR RHINITIS 90 tablet 5 Active Active Problems Problem Noted Date Diagnosed Date Screening for malignant neoplasm of colon 2023 Overview (07/07/2023): [place] [facility] [place], per pt 2020, no record in [facility] though [place] [facility] [place] pt. Repeat 5 years per pt. Aortic valve regurgitation 11/15/2022 Overview (11/16/2022): [facility] [place]. George Echo 06/2022 Conclusions: - The left ventricular systolic function is normal. The calculated ejection fraction is 55% by biplane method. - There is moderate septal and moderate basal asymmetric hypertrophy. - There is mild to moderate aortic [...] Encounters Date Type Department Care Team Description 11/25/2024 Refill [facility] MEDICINE [address] [place] [address] Maggie Salcido ANP Erectile dysfunction, unspecified erectile dysfunction type 10/28/2024 Refill [facility] MEDICINE [address] [place] [address] Maggie Salcido ANP from Last 3 Months Immunizations Immunization Administration Dates Next Due Hep B, adult [...] 57 03/08/2024 9:37 AM EST Temperature 36.2 C (97.1 F) 03/08/2024 9:37 AM EST Respiratory Rate 12 03/08/2024 9:37 AM EST [...] FOBT 1962 HIV Screening 1962 Sigmoidoscopy 1962 Disability Screening 1962 Hepatitis C Screening 1980 RSV Patients and Patients Aged 60 years or older (1 - Risk 60-74 years 1-dose series) 2022 SDOH Screening 11/17/2023 11/16/2022 Colonoscopy 01/02/2024 01/01/2019 Colorectal Cancer Screening 01/02/2024 Diabetes: Hemoglobin A1C 07/06/2024 024, 11/16/2022, 01/04/2022, Additional history exists COVID-19 Vaccine ( season) 2024 05/06/2021, 09/12/2020, 05/22/2020 Influenza Vaccine (#1) 2024 03/12/2019, 2018 Alcohol/Substance Use Screening 03/08/2025 03/08/2024 Depression Screening 03/08/2025 03/08/2024, 03/08/20 24 Tobacco [...] Expiration Date Blood 07/07/2023 9:40 AM EDT [facility] POINT OF CARE TEST ENTER/EDIT OR DERABLES Final Result * Lipid Panel, Standard (11/16/2022 10:29 AM EDT) Triglycerides 124 mg/dL [facility] Comment:Desirable Triglyceri de: less than 150 mg/dLBorderline High Triglyceride 150-199 mg/dLHigh Triglyceride: 200-499 mg/dLVery High Triglyceride: greater than or equal to 5OO mg/dL Cholesterol 148 mg/dL [facility] Comment:Desirable Cholestero l: less than 200 mg/dLBorderline High Cholesterol: 200-239 mg/dLHigh Cholesterol: greater than 239 mg/dL LDL Cholesterol Calculated 92 mg/dl [facility] Comment:Desirable LDL: less than 100 mg/dLNear Optimal/Above Optimal LDL: 110- 129 mg/dLBorderline High LDL: 130-159 mg/dLHigh LDL: 160-189 mg/dLVery High LDL: greater than or equal to 190 mg/dL HDL Cholesterol 32 mg/dL [facility] Comment:Desirable HDL: great er than 40 mg/dL Note: This HDL assay may give artificially low results in patients with liver disease. Blood Venous blood specimen / Unknown 11/16/2022 10:29 AM EDT 11/16/2022 11:15 AM EDT Maggie TABOR LAB BLOOD ORDERABLES Final Resul t [facility] [address] [place] [address] [phone] * Hm Colonoscopy (01/01/2019) Colonoscopy Normal Normal Lalo Rabago MD HEALTH MAINTENANCE Edited Result - Final from Last 3 Months or Most Recently Relevant to Health Maintenance Insurance [facility] C3 HSN FULL * Guarantor: Florencio [employer] Account Type Relation to Patient Date of Phone Billing Address Personal/Family Self [address] [place] [address] Care Teams Shoe Lacer Relationship Specialty Start Date End Date Maggie Salcido ANP [address] [place] [address] PCP - General Family Medicine 09/17/21
--- OUTSIDE RECORDS SUMMARY | 2025-01-15 16:09 | XMS_ITS | Encounter Summary ---
Author Organization [employer] Address [address] [facility] 7t [place] [address] Care Team Providers Care Overlock Sleeve Setter Name Role Phone Maggie Salcido Primary Care Provider [phone] Reason for Visit * Reason Comments Med Refill Encounter Details Date Type Department Care Team ([facility] st Contact Info) Description 07/13/2023 Refill [facility] MEDICINE [address] [place] [address] Maggie Salcido ANP [address] [place] [address] Social History Tobacco Use Types Packs/Day Years [...] documented as of this encounter Care Teams Overlock Sleeve Setter Relationship Specialty Start Date End Date Maggie Salcido ANP [address] [place] [address] PCP - General Family Medicine 09/17/21 documented as of this encounter
[2025-01-30 09:46] VITALS: BMI 29.9
[2025-02-01 07:24] VITALS: BMI 28.9
[2025-02-01 07:33] VITALS: BP 131/64; PULSE 56; RESP 15; TEMP 36.2; O2SAT 97
[2025-02-01] MEDS: Lactated Ringers 1,000 ML 100 ML IVCONT (07:38)
--- NOTE | 2025-02-01 07:55 | MHC.SHP ---
Pre-Procedural Eval Section A - 24 Hr Update-Section A only Date of Service: 02/01/25 The patient is an INPATIENT: No Changes since office visit: No Cold of Flu in the past 2 weeks, No New Medical Problems, No Changes in Medication and No Patient answered all questions The patient has been examined within 24 hours of the surgical procedure. The History & Physical has been completed within 30 days and I have reviewed it.: Yes Section B - Complete if H&P > 30 days Chief Complaint: screening Allergies: Allergies Allergy/AdvReac Type Severity Reaction Status Date / Time No Known Allergies Allergy Verified 02/01/25 07:20 Plan I have reviewed the history and physical and performed a pertinent physical examination on my patient. No changes have occurred unless specified. Time Spent With Patient Time: Total time managing care of this patient today ____ minutes.
--- NOTE | 2025-02-01 07:59 | HO.ANESPROP2 ---
Documented by User: Sole Recinos NP 01/31/25 08:17 HPI - Anesthesia Eval Consult details Narrative: 64yo M for Colonoscopy with Possible Polypectomy Cardiac optimized. [place] [facility] [place]BBB, Aortic regurg PMFSH Active Problems Active Problems: All Active Problems Epidermal inclusion cyst (Acute) GERD (gastroesophageal reflux disease) (Acute) Sensorineural hearing loss (SNHL) of right ear (Acute) Erectile dysfunction (Acute) Chronic sinusitis (Acute) Asthma (Acute) Family history of polyps in the colon (Acute) Pre-diabetes (Acute) Right bundle branch block (Acute) Inguinal hernia of right side without obstruction or gangrene (Acute) Precordial chest pain (Acute) Colon cancer screening (Acute) Non-rheumatic aortic regurgitation (Acute) Past Medical History Medical History (Updated 02/01/25 @ 07:20 by Afia Miller RN) RBBB (right bundle branch block) Pre-diabetes Asthma GERD (gastroesophageal reflux disease) Colon cancer screening Anal fistula Insomnia Migraines Non-rheumatic aortic regurgitation Family History Family History Father No problems noted. Mother No problems noted. Family history of problems with anesthesia: No Surgical History Surgical History History of right inguinal hernia repair History of ear surgery H/O colonoscopy History of carpal tunnel surgery of right wrist History of Problems with Anesthesia: No Social History Social History Patient Tobacco Use Status: Never used Tobacco Use of substances other than those prescribed or required for medical reasons: No Are you DNR?: No Advance Directives: No Advance Directives Information Provided: Yes Meds Allergies Allergy/AdvReac Type Severity Reaction Status Date / Time No Known Allergies Allergy Verified 02/01/25 07:20 Home Medications ?Medication ?Instructions ?Recorded ?Confirmed ?Last Taken ?Type sbqzjfglge-dqnnkixbwjjxj-njhkwgth 1 cap PO TID PRN Migraine Headache 04/14/20 02/01/25 Unknown History 50 mg-300 mg-40 mg capsule (Fioricet) melatonin 5 mg tablet 10 mg PO BEDTIME 08/19/22 02/01/25 Unknown History cetirizine 10 mg tablet 10 mg PO QAM 11/29/22 02/01/25 Unknown History sildenafil 25 mg tablet (Viagra) 25 - 50 mg PO DAILY PRN Erectile 07/11/24 02/01/25 Unknown History Dysfunction Exam Height,Weight and Vital Signs: Height 5 ft 7 in Weight 86.636 kg Pertinent Lab Results Pertinent Lab Results: Laboratory Tests 10/10/24 11:23 WBC 6.0 Hgb 15.9 Hct 45.7 Plt Count 182 Sodium 141 Potassium 4.3 Chloride 114 H Carbon Dioxide 23 BUN 18 H Creatinine 1.36 Narrative Narrative: ECHO 11/2024 Conclusions: - 1. Normal LV ejection fraction 55-60% with impaired relaxation filling pattern 2. Uyuu-jy-jjczfwrw aortic regurgitation 3. Normal RV systolic pressure 4. Upper limits of normal ascending aortic size 5. No pericardial effusion EKG 08/2024 sinus bradycardia, RBBB, rate 58, Qtc 420ms Assessment and Plan Assessment Anesthesia Assessment: Chart Reviewed Final Anesthetic Review Family History of Problems with Anesthesia: No History of Problems with Anesthesia: No Documented by User: Afia Miramontes DO 02/01/25 08:01 [facility] Past Medical History Medical History (Updated 02/01/25 @ 07:20 by Afia Miller RN) RBBB (right bundle branch block) Pre-diabetes Asthma GERD (gastroesophageal reflux disease) Colon cancer screening Anal fistula Insomnia Migraines Non-rheumatic aortic regurgitation Family History Family History Father No problems noted. Mother No problems noted. Family history of problems with anesthesia: No Surgical History Surgical History History of right inguinal hernia repair History of ear surgery H/O colonoscopy History of carpal tunnel surgery of right wrist History of Problems with Anesthesia: No Social History Social History Patient Tobacco Use Status: Never used Tobacco Use of substances other than those prescribed or required for medical reasons: No Are you DNR?: No Advance Directives: No Advance Directives Information Provided: Yes Meds Allergies Allergy/AdvReac Type Severity Reaction Status Date / Time No Known Allergies Allergy Verified 02/01/25 07:20 Home Medications ?Medication ?Instructions ?Recorded ?Confirmed ?Last Taken ?Type mxwmkvrlzg-ovyxvkcvqswar-mtsyefor 1 cap PO TID PRN Migraine Headache 04/14/20 02/01/25 Unknown History 50 mg-300 mg-40 mg capsule (Fioricet) melatonin 5 mg tablet 10 mg PO BEDTIME 08/19/22 02/01/25 Unknown History cetirizine 10 mg tablet 10 mg PO QAM 11/29/22 02/01/25 Unknown History sildenafil 25 mg tablet (Viagra) 25 - 50 mg PO DAILY PRN Erectile 07/11/24 02/01/25 Unknown History Dysfunction Exam Exam Date and Time: 02/01/25 0759 Height,Weight and Vital Signs: Height 5 ft 7 in Weight 86.636 kg Vital Signs Temperature 97.2 F 02/01/25 07:33 Pulse Rate 56 02/01/25 07:33 Respiratory Rate 15 02/01/25 07:33 Blood Pressure 131/64 02/01/25 07:33 Pulse Oximetry 97 02/01/25 07:33 Oxygen Delivery Method Room Air 02/01/25 07:33 Temperature 97.2 F 02/01/25 07:33 Pulse Rate 56 02/01/25 07:33 Respiratory Rate 15 02/01/25 07:33 Blood Pressure 131/64 02/01/25 07:33 Pulse Oximetry 97 02/01/25 07:33 Oxygen Delivery Method Room Air 02/01/25 07:33 Airway Mallampati Class: I TM Dist: >3cm Neck ROM: Full Loose/Missing/Broken Teeth: No (patient denies any loose or broken teeth) Heart: S1S2 Lungs: CTAB Assessment and Plan Assessment Anesthesia Assessment: Anesthesia Plan Discussed and Chart Reviewed Final Anesthetic Review Family History of Problems with Anesthesia: No History of Problems with Anesthesia: No NPO: Yes ASA Class: II Final Preanesthetic Review: No Changes in Pt Med Stat, Meds/Allgs Chart Reviewed, Consent Obtained/Reviewed (supervisor welding equipment repairer at bedside for translation) and Anes Risks/Benef Reviewed Patient Risk: Low Procedure Risk: Low Anesthetic Plan Anesthetic Plan: MAC: and Agree w/ Assess. and Plan Disposition: Standard PACU
--- NOTE | 2025-02-01 08:25 | W.PM.OPN ---
Operative Note Operative Note Date of Service: 02/01/25 Narrative: Prep diagnosis: Family history of colon cancer Postop diagnosis: 1.Occasional diverticuli 2. Lipoma the transverse colon Procedure: Colonoscopy Surgeon: Roosevelt Olson MD The patient is a 62-year-old male with a family history of colon cancer who undergoes a colonoscopy every 5 years. He understood the technique of the planned procedure as was the risks, benefits, and alternatives The patient was brought to the operating room and placed in left lateral decubitus position under monitored anesthesia care. A surgical time-out was done. A full digital rectal exam was done and this did not reveal any significant anal lesions. The tip of the Olympus colonoscope was gently introduced through the anal orifice advanced with insufflation all the way to the cecum. The cecum was intubated. The cecum was identified by visualization of the ileocecal valve as well as the appendiceal orifice. The cecal mucosa was unremarkable. The scope was gradually withdrawn with careful examination of the entire colonic mucosa being done with scope withdrawal. The patient had adequate bowel prep so it was unlikely that any lesion may have been missed. There was note of occasional diverticuli throughout the colon. There was note of a small lipoma in the colon in the transverse segment. The rectum was reached and there were no lesions seen. The anal canal was unremarkable. The scope was then withdrawn completely with desufflation The patient tolerated has a procedure well. There were no immediate complications. In view of his family history, he is next colonoscopy may be in the next 5 years.
[2025-02-01 08:39] VITALS: BP 95/55; PULSE 60; RESP 15; TEMP 36.5; O2SAT 95
[2025-02-01 08:56] VITALS: BP 125/65; PULSE 56; RESP 15; TEMP 36.5; O2SAT 98
== END 2025-02-01 10:11 | disposition home or self-care (01) ==
PROVIDERS: PCP Nurse Practitioner Primary Care; Visit Provider Surgery
PROC: 0DBE8ZZ Excision of Large Intestine, Via Natural or Artificial Opening Endoscopic (ICD-10-PCS; CPT 45378; principal; 2025-02-01 08:40)
DX: Z12.11 Encounter for screening for malignant neoplasm of colon (principal); Z80.0 Family history of malignant neoplasm of digestive organs; Z83.719 Family history of colon polyps, unspecified; D17.5 Benign lipomatous neoplasm of intra-abdominal organs; K57.30 Diverticulosis of large intestine without perforation or abscess without bleeding; R73.03 Prediabetes; I45.10 Unspecified right bundle-branch block; R07.2 Precordial pain; I35.1 Nonrheumatic aortic (valve) insufficiency; G43.909 Migraine, unspecified, not intractable, without status migrainosus; G47.00 Insomnia, unspecified; Z79.1 Long term (current) use of non-steroidal anti-inflammatories (NSAID); Z79.899 Other long term (current) drug therapy; Z98.890 Other specified postprocedural states
CPT/HCPCS: 45378; J2003; J2704

== ENCOUNTER → 2025-02-01 07:05 | Outpatient (BNV) | payer MEDICAID, SELFPAY | PROVIDERS: PCP Nurse Practitioner Primary Care; Visit Provider Surgery | DX: Z12.11 Encounter for screening for malignant neoplasm of colon (principal); Z80.0 Family history of malignant neoplasm of digestive organs; K57.90 Diverticulosis of intestine, part unspecified, without perforation or abscess without bleeding; D12.3 Benign neoplasm of transverse colon | CPT/HCPCS: 45378 ==

== ENCOUNTER 2025-02-14 08:53 | Outpatient (AMB) | payer MEDICAID, SELFPAY ==
--- NOTE | 2025-02-14 08:57 | MHC.OFFVIS ---
Vital Signs 02/14/25 09:05 Height 5 ft 7 in Weight 191 lb BMI 29.9 BP 121/58 L Blood Pressure Location Rt brachial Position Sitting Pulse 56 Intake Visit Reasons: S/P colonoscopy Intake Note: This patient presents for a follow-up status post colonoscopy. Pt c/o; * 5 year recall, reports no complaints pertaining to colonoscopy. Plate And Weld Inspector Required: Yes Plate And Weld Inspector Language: Dealer Account Manager Services: Plate And Weld Inspector Present Plate And Weld Inspector Name: Syed Information Interpreted: non-clinical & clinical Accompanied by: Self / Same As Patient Allergies No Known Allergies Allergy (Verified 02/14/25 09:07) Medication List - Last Reconciled 02/14/25 by Roosevelt Olson MD mctgsuioiq-twfigilknjtqq-doph 50-300-40 mg (Fioricet) 1 cap PO TID PRN cetirizine 10 mg PO QAM ibuprofen 600 mg PO Q6H PRN melatonin 10 mg PO BEDTIME sildenafil (Viagra) 25 - 50 mg PO DAILY PRN HPI HPI S/P colonoscopy: Details: He underwent colonoscopy for a family history of colon cancer last 02/01/2025. He tolerated procedure well. Denies complaints after that. [facility] Medical History RBBB (right bundle branch block) Pre-diabetes Asthma GERD (gastroesophageal reflux disease) Colon cancer screening Anal fistula Insomnia Migraines Non-rheumatic aortic regurgitation Surgical History History of right inguinal hernia repair History of ear surgery H/O colonoscopy History of carpal tunnel surgery of right wrist Family History Father No problems noted. Mother No problems noted. Social History Patient Tobacco Use Status: Never used Tobacco Review of Systems Const Denies chills and Denies fever(s) Card Denies chest pain, Denies dyspnea and Denies dyspnea on exertion Resp Denies cough, Denies dyspnea and Denies dyspnea on exertion GI Denies hematochezia and Denies change in bowel habits Denies hematuria and Denies difficulty urinating Musc Denies back pain and Denies limited range of motion Neuro Denies focal weakness and Denies convulsions Psych Denies depression and Denies mood swings Physical Exam Vital Signs: Last Vital Signs Pulse 56 02/14/25 09:05 BP 121/58 L 02/14/25 09:05 BMI result Body Mass Index 29.9 Const General: comfortable and no acute distress Resp Effort & Inspection: normal respiratory effort GI Palpation (GI): Soft to palpation, not firm and nontender Assessment & Plan Assessment & Plan (1) Family history of polyps in the colon: Comment: Father with paternal uncle dying of colon cancer Code(s): Z83.719 - Family history of colon polyps, unspecified Category: Medical Plan: Status post colonoscopy. Findings showed diverticulosis and a lipoma. Otherwise, there were no polyps seen. There were no lesions noted . I did tell him the potential problems with the diverticuli including inflammation, bleeding and perforation which is not common. I told him that in view of his family history, his last colonoscopy may be in the next 5 years. He understands the plan. I also advised him the benefits of high-fiber diet. Coding Level of Care Code Est Pt Level 3 (91366) Diagnoses Family history of polyps in the colon Z83.719
[2025-02-14 09:05] VITALS: BP 121/58; PULSE 56; BMI 29.9
== END 2025-02-14 09:13 | disposition home or self-care (01) ==
LOC: HO.HGS 08:54
PROVIDERS: PCP Nurse Practitioner Primary Care; Visit Provider Surgery
DX: Z83.719 Family history of colon polyps, unspecified (principal)
CPT/HCPCS: 99213

== ENCOUNTER → 2025-02-14 08:53 | Outpatient (BNVA) | payer MEDICAID, SELFPAY | PROVIDERS: PCP Nurse Practitioner Primary Care; Visit Provider Surgery | DX: Z71.2 Person consulting for explanation of examination or test findings (principal); K57.90 Diverticulosis of intestine, part unspecified, without perforation or abscess without bleeding; D12.5 Benign neoplasm of sigmoid colon; Z83.719 Family history of colon polyps, unspecified | CPT/HCPCS: 99212 ==